=== PATIENT | female | born 1975 | race Hispanic/Latino ===

== ENCOUNTER 2019-08-04 03:39 | Emergency (ER) | payer OTHER ==
[~2019-08-04 03:39] MED LIST: CITA-107 PO; FERS325 PO
[2019-08-04] MEDS ORDERED: FAMOTIDINE 20MG TAB 20 MG TAB ONE (04:18)
[2019-08-04] MEDS ORDERED: ONDANSETRON ODT 4 MG TAB ONE (04:19)
[2019-08-04] MEDS ORDERED: SUCRALFATE 1 GM TABLET ONE (04:19)
[2019-08-04] MEDS ORDERED: MORPHINE SULFATE 4 MG/1ML SYG ONE (04:20)
== END 2019-08-04 05:58 | disposition home or self-care (01) ==
LOC: EDH 03:39
DX: K29.70 Gastritis, unspecified, without bleeding (principal); K02.9 Dental caries, unspecified; Z90.49 Acquired absence of other specified parts of digestive tract
CPT/HCPCS: 96372; 99284; J2270

== ENCOUNTER 2020-01-14 08:00 | Emergency (ER) | payer OTHER ==
[2020-01-14 09:07] LABS: APPEARANCE,URINE Clear (CLEAR); BILIRUBIN,URINE Negative (NEGATIVE); COLOR,URINE Yellow (YELLOW); GLUCOSE, URINE (UA) Negative (NEGATIVE); KETONES,URINE Negative (NEGATIVE); LEUKOCYTE ESTERASE ,URINE Negative (NEGATIVE); NITRATE,URINE Negative (NEGATIVE); OCCULT BLOOD,URINE Negative (NEGATIVE); PH,URINE 6.5 (5.0-8.0); PROTEIN,URINE Negative (NEGATIVE)
[2020-01-14 09:13] LABS: BASOPHILS % (AUTO) 0.5 % (0.0-5.0); EOSINOPHILS % (AUTO) 3.6 % (0.0-8.0); HEMATOCRIT 26.6 % (36-48); LYMPHOCYTES % (AUTO) 16.1 % (21.0-51.0); MEAN CORPUSCULAR HEMOGLOBIN 18.2 pg (27.0-33.0); MEAN CORPUSCULAR HGB CONC 27.1 g/dL (32.0-36.0); MEAN CORPUSCULAR VOLUME 67.2 fL (79-99); MONOCYTES % (AUTO) 5.7 % (3.0-13.0); NEUTROPHILS % (AUTO) 73.9 % (40.0-77.0); PLATELET COUNT (AUTO) 375 K/uL (130-400); RED BLOOD CELL COUNT(AUTO) 3.96 MIL/uL (4.00-5.50); RED CELL DISTRIBUTION WIDTH 20.8 % (11.0-15.5); WHITE BLOOD COUNT (AUTO) 9.1 K/uL (4.8-10.8)
[2020-01-14 09:32] LABS: ALBUMIN 3.6 g/dL (3.5-5.0); BILIRUBIN,TOTAL 0.4 mg/dL (0.2-1.0); CREATININE 0.5 mg/dL (0.5-1.5); POTASSIUM 3.5 mmol/L (3.5-5.1); TOTAL PROTEIN, SERUM 8.3 g/dL (6.0-8.3)
== END 2020-01-14 10:40 | disposition home or self-care (01) ==
LOC: EDH 08:00
DX: R05 Cough (principal); Z90.49 Acquired absence of other specified parts of digestive tract
CPT/HCPCS: 36415; 71045; 80053; 81003; 85025; 93005

== ENCOUNTER 2020-02-11 12:17 | Emergency (ER) | payer OTHER, SELFPAY | END 2020-02-11 14:21 | disposition home or self-care (01) | LOC: EDH 12:17 | DX: J06.9 Acute upper respiratory infection, unspecified (principal); R05 Cough; Z90.49 Acquired absence of other specified parts of digestive tract | CPT/HCPCS: 71045 ==

== ENCOUNTER 2020-04-23 01:43 | Emergency (ER) | payer OTHER, SELFPAY ==
[2020-04-23] MEDS ORDERED: ALBUTEROL SULFATE 0.083% 2.5 MG/3 ML INH IH ONE (03:03)
== END 2020-04-23 03:17 | disposition home or self-care (01) ==
LOC: EDH 01:43
DX: J45.991 Cough variant asthma (principal); Z90.49 Acquired absence of other specified parts of digestive tract
CPT/HCPCS: 71045; 94640

== ENCOUNTER 2021-01-27 13:35 | Emergency (ER) | payer OTHER ==
[~2021-01-27] VITALS: Ht 162.6 cm; Wt 90.7 kg
[2021-01-27 14:38] LABS: BASOPHILS % (AUTO) 0.2 % (0.0-5.0); EOSINOPHILS % (AUTO) 4.1 % (0.0-8.0); HEMATOCRIT 29.8 % (36-48); LYMPHOCYTES % (AUTO) 6.1 % (21.0-51.0); MEAN CORPUSCULAR HEMOGLOBIN 17.7 pg (27.0-33.0); MEAN CORPUSCULAR HGB CONC 25.5 g/dL (32.0-36.0); MEAN CORPUSCULAR VOLUME 69.5 fL (79-99); MONOCYTES % (AUTO) 3.8 % (3.0-13.0); NEUTROPHILS % (AUTO) 85.3 % (40.0-77.0); NUCLEATED RED BLOOD CELLS 0.2 % (0.0-0.19); PLATELET COUNT (AUTO) 319 K/uL (130-400); RED BLOOD CELL COUNT(AUTO) 4.29 MIL/uL (4.00-5.50); RED CELL DISTRIBUTION WIDTH 19.2 % (11.0-15.5); WHITE BLOOD COUNT (AUTO) 9.5 K/uL (4.8-10.8)
[2021-01-27 14:53] LABS: CREATININE 0.6 mg/dL (0.5-1.5); POTASSIUM 3.9 mmol/L (3.5-5.1)
[2021-01-27] MEDS: ONDANSETRON 4MG TABLET PO ONE (14:59)
[2021-01-27 15:03] LABS: ALBUMIN 3.8 g/dL (3.5-5.0); BILIRUBIN,TOTAL 0.8 mg/dL (0.2-1.0); TOTAL PROTEIN, SERUM 8.8 g/dL (6.0-8.3)
[2021-01-27 15:12] VITALS: BP 124/67
[2021-01-27] MEDS ORDERED: ONDA4TAB4 PO (16:10)
[2021-01-27 16:14] VITALS: BP 118/65
== END 2021-01-27 16:16 | disposition home or self-care (01) ==
LOC: EDH 13:35
DX: R11.2 Nausea with vomiting, unspecified (principal); R19.7 Diarrhea, unspecified; Z79.899 Other long term (current) drug therapy; Z20.822 Contact with and (suspected) exposure to COVID-19
CPT/HCPCS: 36415; 80053; 83690; 84702; 85025; 87426; 99283; Q0162 ×2

== ENCOUNTER 2021-06-03 07:49 | Emergency (ER) | payer OTHER ==
[~2021-06-03] VITALS: Ht 162.6 cm; Wt 90.7 kg
[~2021-06-03 07:49] MED LIST changes: +ONDA4TAB4 PO
[2021-06-03 07:51] VITALS: BP 140/68
[2021-06-03] MEDS ORDERED: IBUP-2070 PO (08:54)
== END 2021-06-03 09:08 | disposition home or self-care (01) ==
LOC: EDH 07:49
DX: M77.11 Lateral epicondylitis, right elbow (principal); Z79.899 Other long term (current) drug therapy
CPT/HCPCS: 73090

== ENCOUNTER 2022-04-06 08:15 | Emergency (ER) | payer OTHER ==
[~2022-04-06] VITALS: Ht 160 cm; Wt 85.7 kg
[~2022-04-06 08:15] MED LIST changes: +IBUP-2070 PO
[2022-04-06 08:19] VITALS: BP 129/71
[2022-04-06] MEDS ORDERED: FLUT16H NASAL (10:01)
[2022-04-06] MEDS ORDERED: AMOX500T2 PO (10:01)
== END 2022-04-06 10:12 | disposition home or self-care (01) ==
LOC: EDH 08:15
DX: J32.9 Chronic sinusitis, unspecified (principal); Z20.822 Contact with and (suspected) exposure to COVID-19; D64.9 Anemia, unspecified; Z90.49 Acquired absence of other specified parts of digestive tract; Z79.899 Other long term (current) drug therapy
CPT/HCPCS: 99283; 87635; 87880; 87804 ×2; C9803

== ENCOUNTER 2022-05-11 20:20 | Emergency (ER) | payer OTHER ==
[~2022-05-11] VITALS: Ht 162.6 cm; Wt 74.8 kg
[~2022-05-11 20:20] MED LIST changes: +AMOX500T2 PO; +FLUT16H NASAL
[2022-05-11] MEDS ORDERED: ONDANSETRON 4MG INJ IVP ONE (21:00)
[2022-05-11] MEDS ORDERED: FAMOTIDINE 20MG VIAL IV ONE (21:00)
[2022-05-11] MEDS ORDERED: 0.9%NACL 1000ML 1,000 ML IV ONE (21:00)
[2022-05-11] MEDS ORDERED: MORPHINE 4 MG SYG IVP ONE (21:00)
[2022-05-11 21:32] LABS: BASOPHILS % (AUTO) 0.4 % (0.0-5.0); EOSINOPHILS % (AUTO) 2.7 % (0.0-8.0); HEMATOCRIT 24.8 % (36-48); LYMPHOCYTES % (AUTO) 11.5 % (21.0-51.0); MEAN CORPUSCULAR HEMOGLOBIN 15.8 pg (27.0-33.0); MEAN CORPUSCULAR VOLUME 63.1 fL (79-99); MONOCYTES % (AUTO) 5.7 % (3.0-13.0); NEUTROPHILS % (AUTO) 79.1 % (40.0-77.0); PLATELET COUNT (AUTO) 315 K/uL (130-400); RED BLOOD CELL COUNT(AUTO) 3.93 MIL/uL (4.00-5.50); RED CELL DISTRIBUTION WIDTH 20.2 % (11.0-15.5); WHITE BLOOD COUNT (AUTO) 12.1 K/uL (4.8-10.8)
[2022-05-11 21:47] LABS: CREATININE 0.6 mg/dL (0.5-1.5); POTASSIUM 3.6 mmol/L (3.5-5.1)
[2022-05-11 21:52] LABS: ALBUMIN 3.7 g/dL (3.5-5.0); TOTAL PROTEIN, SERUM 7.9 g/dL (6.0-8.3)
[2022-05-11 21:54] LABS: HCG,QUALITATIVE URINE NEGATIVE (NEGATIVE)
[2022-05-11 22:05] LABS: APPEARANCE,URINE CLOUDY (CLEAR); BILIRUBIN,URINE 0.5 mg/dL (NEGATIVE); COLOR,URINE DARK-BROWN (YELLOW); GLUCOSE, URINE (UA) NEGATIVE (NEGATIVE); KETONES,URINE NEGATIVE (NEGATIVE); LEUKOCYTE ESTERASE ,URINE 500 Leu/uL (NEGATIVE); NITRATE,URINE 1+ (NEGATIVE); OCCULT BLOOD,URINE SMALL (NEGATIVE); PH,URINE 5.5 (5.0-8.0); PROTEIN,URINE 20 mg/dL (NEGATIVE); UROBILINOGEN,URINE 3 mg/dL (0.2-1.0)
[2022-05-11 22:07] LABS: BACTERIA,URINE RARE /HPF (None Seen); MUCUS,URINE RARE LPF (None Seen); SQUAMOUS EPITHELIAL CELL,UR MOD /HPF (0-2); TRANSITIONAL EPI CELLS,URINE RARE /HPF (None Seen); WBC,URINE TNTC /HPF (0-1)
[2022-05-11] MEDS ORDERED: IOHEXOL 350 MG/ML 100ML INFUS..BTL IV ONE (22:17)
[2022-05-11] MEDS ORDERED: PANT40TA PO (23:56)
[2022-05-12] MEDS ORDERED: ONDANSETRON 4MG INJ IVP ONE (01:00)
[2022-05-12 03:43] VITALS: BP 101/50
== END 2022-05-12 03:52 | disposition home or self-care (01) ==
LOC: EDH 20:20
DX: K29.70 Gastritis, unspecified, without bleeding (principal); D50.9 Iron deficiency anemia, unspecified; Z20.822 Contact with and (suspected) exposure to COVID-19; Z90.49 Acquired absence of other specified parts of digestive tract; Z79.899 Other long term (current) drug therapy
CPT/HCPCS: 99285; 36430; 96374; 96375; 87635; 96361; 84484; 80053; 83690; 85025; 86850; 86900; 86901; 86923; 87088; 87804 ×2; 81001; 81025; 36415; 93005; 96376; P9016; C9803; J3490; J7030; J2405 ×2; J2270; Q9967

== ENCOUNTER 2022-09-16 05:35 | Emergency (ER) | payer OTHER ==
[~2022-09-16] VITALS: Ht 162.6 cm; Wt 55.3 kg
[~2022-09-16 05:35] MED LIST changes: +PANT40TA PO
[2022-09-16 05:37] VITALS: BP 122/76
[2022-09-16] MEDS ORDERED: GUAIFENESIN-DM 200/20 MG 10 ML PO ONE (06:30)
[2022-09-16] MEDS ORDERED: IBUPROFEN 600 MG TABLET PO ONE (06:30)
[2022-09-16] MEDS ORDERED: IBUP-2070 PO (06:59)
[2022-09-16] MEDS ORDERED: AZIT500T4 PO (06:59)
[2022-09-16] MEDS ORDERED: D-ME118S47 PO (06:59)
== END 2022-09-16 07:03 | disposition home or self-care (01) ==
LOC: EDH 05:35
DX: J40 Bronchitis, not specified as acute or chronic (principal); Z90.49 Acquired absence of other specified parts of digestive tract; Z79.1 Long term (current) use of non-steroidal anti-inflammatories (NSAID); Z79.899 Other long term (current) drug therapy; Z20.822 Contact with and (suspected) exposure to COVID-19
CPT/HCPCS: 99283; 87635; 87880; 87804 ×2; C9803

== ENCOUNTER 2023-01-12 08:56 | Emergency (ER) | payer OTHER ==
[~2023-01-12] VITALS: Ht 157.5 cm; Wt 81.6 kg
[~2023-01-12 08:56] MED LIST changes: +AZIT500T4 PO; +D-ME118S47 PO
[2023-01-12 09:53] LABS: BASOPHILS % (AUTO) 0.5 % (0.0-5.0); EOSINOPHILS % (AUTO) 6.8 % (0.0-8.0); HEMATOCRIT 27.7 % (36-48); LYMPHOCYTES % (AUTO) 28.4 % (21.0-51.0); MEAN CORPUSCULAR HGB CONC 26.4 g/dL (32.0-36.0); MEAN CORPUSCULAR VOLUME 68.2 fL (79-99); MONOCYTES % (AUTO) 11.2 % (3.0-13.0); NEUTROPHILS % (AUTO) 52.8 % (40.0-77.0); PLATELET COUNT (AUTO) 295 K/uL (130-400); RED BLOOD CELL COUNT(AUTO) 4.06 MIL/uL (4.00-5.50); RED CELL DISTRIBUTION WIDTH 19.9 % (11.0-15.5); WHITE BLOOD COUNT (AUTO) 6.4 K/uL (4.8-10.8)
[2023-01-12 10:00] LABS: CREATININE 0.6 mg/dL (0.5-1.5); POTASSIUM 3.8 mmol/L (3.5-5.1)
[2023-01-12 11:26] LABS: % IRON SATURATION 2.1 % (22-44)
[2023-01-12] MEDS ORDERED: IBUPROFEN 600 MG TABLET PO ONE (11:30)
[2023-01-12 14:02] VITALS: BP 139/77; PULSE 81; RESP 20; O2SAT 100
== END 2023-01-12 14:38 | disposition home or self-care (01) ==
LOC: EDH 08:56
DX: M25.512 Pain in left shoulder (principal); D50.9 Iron deficiency anemia, unspecified; Z79.899 Other long term (current) drug therapy; Z90.49 Acquired absence of other specified parts of digestive tract
CPT/HCPCS: 36415; 71045; 80048; 81025; 82728; 83540; 83550; 84484; 85025; 93005

== ENCOUNTER 2023-05-18 01:15 | Emergency (ER) | payer BC, OTHER ==
[~2023-05-18] VITALS: Ht 162.6 cm; Wt 84.8 kg
[~2023-05-18 01:15] MED LIST changes: +BROM118S48 PO; -D-ME118S47 PO
[2023-05-18 02:12] LABS: SARS-CoV-2, RNA, NAAT POSITIVE SARS CoV-2 (NEGATIVE)
[2023-05-18 02:13] LABS: RAPID GROUP A STREP negative (NEGATIVE)
[2023-05-18 02:22] LABS: INFLUENZA TYPE A Negative For Type A (NEGATIVE); INFLUENZA TYPE B Negative For Type B (NEGATIVE)
[2023-05-18] MEDS ORDERED: IBUP-1493 PO (02:41)
[2023-05-18] MEDS ORDERED: PRED20TA3 PO (02:41)
[2023-05-18] MEDS ORDERED: PREDNISONE 20 MG TABLET PO ONE (03:00)
[2023-05-18] MEDS ORDERED: IBUPROFEN 800 MG TAB PO ONE (03:00)
[2023-05-18 03:34] VITALS: BP 132/74; PULSE 78; RESP 18; O2SAT 99
== END 2023-05-18 03:44 | disposition home or self-care (01) ==
LOC: EDH 01:15
DX: U07.1 COVID-19 (principal); J45.909 Unspecified asthma, uncomplicated; Z79.899 Other long term (current) drug therapy; Z90.49 Acquired absence of other specified parts of digestive tract
CPT/HCPCS: 99283; 87635; 87880; 87804 ×2; C9803

== ENCOUNTER 2023-12-02 03:34 | Emergency (ER) | payer BC, OTHER ==
[~2023-12-02] VITALS: Ht 162.6 cm; Wt 82.6 kg
[~2023-12-02 03:34] MED LIST changes: -AMOX500T2 PO; -AZIT500T4 PO; -BROM118S48 PO; -FERS325 PO; -FLUT16H NASAL; +IBUP-1493 PO; -IBUP-2070 PO; -ONDA4TAB4 PO; +PRED20TA3 PO
[2023-12-02 03:59] LABS: BASOPHILS # (AUTO) 0.04 K/uL (0.00-0.20); BASOPHILS % (AUTO) 0.4 % (0.0-5.0); EOSINOPHILS # (AUTO) 0.23 K/uL (0.00-0.70); EOSINOPHILS % (AUTO) 2.5 % (0.0-8.0); HEMATOCRIT 26.8 % (36-48); IMMATURE GRANULOCYTE ABSOLUTE 0.05 K/uL (0-1); LYMPHOCYTES % (AUTO) 11.1 % (21.0-51.0); MEAN CORPUSCULAR HEMOGLOBIN 18.2 pg (27.0-33.0); MEAN CORPUSCULAR HGB CONC 27.6 g/dL (32.0-36.0); MEAN CORPUSCULAR VOLUME 65.8 fL (79-99); MONOCYTES # (AUTO) 0.7 K/uL (0.1-1.0); MONOCYTES % (AUTO) 7.4 % (3.0-13.0); NEUTROPHILS # (AUTO) 7.2 K/uL (1.8-7.7); NEUTROPHILS % (AUTO) 78.1 % (40.0-77.0); PLATELET COUNT (AUTO) 305 K/uL (130-400); RED BLOOD CELL COUNT(AUTO) 4.07 MIL/uL (4.00-5.50); RED CELL DISTRIBUTION WIDTH 20.5 % (11.0-15.5); WHITE BLOOD COUNT (AUTO) 9.3 K/uL (4.8-10.8)
[2023-12-02 04:14] LABS: CREATININE 0.6 mg/dL (0.5-1.0); POTASSIUM 3.9 mmol/L (3.5-5.1)
[2023-12-02] MEDS: FAMOTIDINE 20MG VIAL IV ONE (04:14)
[2023-12-02] MEDS: ONDANSETRON 4MG INJ IVP ONE (04:14)
[2023-12-02] MEDS: 0.9%NACL 1000ML 1,000 ML IV ONE (04:14)
[2023-12-02 04:21] LABS: ALBUMIN 3.4 g/dL (3.5-5.0); BILIRUBIN,TOTAL 0.3 mg/dL (0.2-1.0); TOTAL PROTEIN, SERUM 7.6 g/dL (6.0-8.3)
[2023-12-02 04:25] LABS: APPEARANCE,URINE CLEAR (CLEAR); BILIRUBIN,URINE NEGATIVE (NEGATIVE); COLOR,URINE YELLOW (YELLOW); GLUCOSE, URINE (UA) NEGATIVE (NEGATIVE); KETONES,URINE NEGATIVE (NEGATIVE); LEUKOCYTE ESTERASE ,URINE NEGATIVE Leu/uL (NEGATIVE); NITRATE,URINE NEGATIVE (NEGATIVE); OCCULT BLOOD,URINE SMALL (NEGATIVE); PROTEIN,URINE 10 mg/dL (NEGATIVE); UROBILINOGEN,URINE 0.2 mg/dL (0.2-1.0)
[2023-12-02 04:26] LABS: ADD UA MICROSCOPIC YES
[2023-12-02 04:28] LABS: BACTERIA,URINE FEW /HPF (None Seen); MUCUS,URINE FEW LPF (None Seen); SQUAMOUS EPITHELIAL CELL,UR RARE /HPF (0-2)
[2023-12-02] MEDS: PANTOPRAZOLE 40 MG/VIAL IVP ONE (05:42)
[2023-12-02] MEDS: MORPHINE 4 MG SYG IVP ONE (07:43)
[2023-12-02 08:10] VITALS: BP 127/66; PULSE 84; RESP 16; O2SAT 100
[2023-12-02] MEDS ORDERED: OMEP-420 PO (09:40)
[2023-12-02] MEDS ORDERED: ONDA-243 PO (09:42)
== END 2023-12-02 10:10 | disposition home or self-care (01) ==
LOC: EDH 03:34
DX: R10.13 Epigastric pain (principal); E86.0 Dehydration; D50.9 Iron deficiency anemia, unspecified; J45.909 Unspecified asthma, uncomplicated; Z90.49 Acquired absence of other specified parts of digestive tract; Z79.899 Other long term (current) drug therapy; Z98.890 Other specified postprocedural states
CPT/HCPCS: 99285; 74176; 96374; 96375; 96361; 84484; 80053; 83690; 85025; 86850; 86900; 86901; 81001; 81025; 36415; 93005; J3490; J7030; J2405; J2270; C9113

== ENCOUNTER 2024-04-05 01:48 | Emergency (ER) | payer OTHER ==
[~2024-04-05] VITALS: Ht 162.6 cm; Wt 85.7 kg
[~2024-04-05 01:48] MED LIST changes: +OMEP-420 PO; +ONDA-243 PO
[2024-04-05 02:13] LABS: BASOPHILS # (AUTO) 0.06 K/uL (0.00-0.20); BASOPHILS % (AUTO) 0.5 % (0.0-5.0); EOSINOPHILS # (AUTO) 0.54 K/uL (0.00-0.70); EOSINOPHILS % (AUTO) 4.7 % (0.0-8.0); HEMATOCRIT 29.7 % (36-48); IMMATURE GRANULOCYTE ABSOLUTE 0.02 K/uL (0-1); LYMPHOCYTES # (AUTO) 3.3 K/uL (1.0-4.8); LYMPHOCYTES % (AUTO) 28.7 % (21.0-51.0); MEAN CORPUSCULAR HEMOGLOBIN 18.8 pg (27.0-33.0); MEAN CORPUSCULAR HGB CONC 27.3 g/dL (32.0-36.0); MEAN CORPUSCULAR VOLUME 68.8 fL (79-99); MONOCYTES # (AUTO) 0.8 K/uL (0.1-1.0); MONOCYTES % (AUTO) 6.5 % (3.0-13.0); NEUTROPHILS # (AUTO) 6.8 K/uL (1.8-7.7); NEUTROPHILS % (AUTO) 59.4 % (40.0-77.0); PLATELET COUNT (AUTO) 367 K/uL (130-400); RED BLOOD CELL COUNT(AUTO) 4.32 MIL/uL (4.00-5.50); RED CELL DISTRIBUTION WIDTH 19.5 % (11.0-15.5); WHITE BLOOD COUNT (AUTO) 11.5 K/uL (4.8-10.8)
[2024-04-05 02:24] LABS: CREATININE 0.7 mg/dL (0.5-1.0); POTASSIUM 3.2 mmol/L (3.5-5.1)
[2024-04-05 03:11] LABS: APPEARANCE,URINE CLEAR (CLEAR); BILIRUBIN,URINE NEGATIVE (NEGATIVE); COLOR,URINE YELLOW (YELLOW); GLUCOSE, URINE (UA) NEGATIVE (NEGATIVE); KETONES,URINE NEGATIVE (NEGATIVE); LEUKOCYTE ESTERASE ,URINE 75 Leu/uL (NEGATIVE); NITRATE,URINE NEGATIVE (NEGATIVE); PROTEIN,URINE 10 mg/dL (NEGATIVE); UROBILINOGEN,URINE 0.2 mg/dL (0.2-1.0)
[2024-04-05 03:15] LABS: ADD UA MICROSCOPIC YES
[2024-04-05 03:19] LABS: BACTERIA,URINE FEW /HPF (None Seen); MUCUS,URINE FEW LPF (None Seen); RBC,URINE 0-1 /HPF (0-1); SQUAMOUS EPITHELIAL CELL,UR FEW /HPF (0-2)
[2024-04-05] MEDS ORDERED: OMEP40CA21 PO (04:03)
[2024-04-05 04:34] VITALS: BP 134/72; PULSE 92; RESP 18; TEMP 98.4; O2SAT 96
[2024-04-05] MEDS: ondanSETRON 4MG INJ IVP ONE (04:45)
[2024-04-05] MEDS: morPHINE 2 MG SYG IVP ONE (04:45)
[2024-04-05] MEDS: FAMOTIDINE 20MG TAB PO ONE (04:46)
[2024-04-05] MEDS: 0.9%NACL 1000ML 1,000 ML IV ONE (04:46)
[2024-04-05] MEDS: traMADol HCL 50 MG TABLET PO ONE (05:10)
== END 2024-04-05 05:30 | disposition home or self-care (01) ==
LOC: EDH 01:48
DX: K29.70 Gastritis, unspecified, without bleeding (principal); N92.0 Excessive and frequent menstruation with regular cycle; D50.9 Iron deficiency anemia, unspecified; R11.2 Nausea with vomiting, unspecified; K21.9 Gastro-esophageal reflux disease without esophagitis; Z79.899 Other long term (current) drug therapy
CPT/HCPCS: 99284; 96374; 96361; 80048; 83690; 85025; 87086; 81001; 81025; 36415; J7030; J2405; J2270

== ENCOUNTER 2024-07-26 15:44 | Emergency (ER) | payer OTHER ==
[~2024-07-26] VITALS: Ht 162.6 cm; Wt 84.8 kg
[~2024-07-26 15:44] MED LIST changes: +OMEP40CA21 PO
--- NOTE | 2024-07-26 17:30 | HMCIMG ---
CT ABDOMEN WITHOUT CONTRAST. CT PELVIS WITHOUT CONTRAST. INDICATION: Right flank pain TECHNIQUE: Routine transaxial imaging using 5 mm slice thickness through the abdomen and pelvis without the administration of IV contrast. Thin slice reconstructions are also provided. Coronal and sagittal reformatted images acquired for interpretation. CT was performed with one or more of the following dose reduction techniques: Automated exposure control, adjustment of the mA and/or kV according to patient size, or use of iterative reconstruction technique. COMPARISON: None FINDINGS: ON NONCONTRAST IMAGING: ABDOMEN: Heart size is normal. Visible lung bases are clear. No abnormal renal calcifications, hydronephrosis, perinephric inflammation, or proximal hydroureter detected. The liver is normal in size and smooth in contour without biliary duct dilation. The spleen is normal in size and attenuation. The gallbladder is absent. The pancreas appears normal without pancreatic duct dilation. The adrenal glands appear normal. No significant abdominal, retrocrural or retroperitoneal adenopathy noted. No evidence for intra-abdominal free air or organized fluid collection. No aortic aneurysmal dilation identified. PELVIS: Urinary bladder is empty. No evidence for free air or organized pelvic fluid collection. No significant pelvic adenopathy detected. Visualized small and large bowel loops appear unremarkable. Terminal ileum appears unremarkable. The appendix appears normal. 4.8 cm right ovarian cyst. Visible osseous structures are intact. IMPRESSION: 4.8 cm right ovarian cyst for which pelvic ultrasound is recommended. No evidence for urolithiasis.
[2024-07-26 17:37] VITALS: BP 138/85; PULSE 89; RESP 18; TEMP 98; O2SAT 100
[2024-07-26 17:53] LABS: BASOPHILS # (AUTO) 0.03 K/uL (0.00-0.20); BASOPHILS % (AUTO) 0.4 % (0.0-5.0); EOSINOPHILS # (AUTO) 0.12 K/uL (0.00-0.70); EOSINOPHILS % (AUTO) 1.4 % (0.0-8.0); HEMATOCRIT 28.9 % (36-48); IMMATURE GRANULOCYTE ABSOLUTE 0.02 K/uL (0-1); LYMPHOCYTES # (AUTO) 1.5 K/uL (1.0-4.8); LYMPHOCYTES % (AUTO) 17.6 % (21.0-51.0); MEAN CORPUSCULAR HEMOGLOBIN 19.2 pg (27.0-33.0); MEAN CORPUSCULAR HGB CONC 27.7 g/dL (32.0-36.0); MEAN CORPUSCULAR VOLUME 69.3 fL (79-99); MONOCYTES # (AUTO) 0.6 K/uL (0.1-1.0); MONOCYTES % (AUTO) 7.6 % (3.0-13.0); NEUTROPHILS % (AUTO) 72.8 % (40.0-77.0); PLATELET COUNT (AUTO) 289 K/uL (130-400); RED BLOOD CELL COUNT(AUTO) 4.17 MIL/uL (4.00-5.50); RED CELL DISTRIBUTION WIDTH 19.3 % (11.0-15.5); WHITE BLOOD COUNT (AUTO) 8.3 K/uL (4.8-10.8)
[2024-07-26 18:00] LABS: CREATININE 0.6 mg/dL (0.5-1.0); POTASSIUM 3.3 mmol/L (3.5-5.1)
[2024-07-26 18:07] LABS: ALBUMIN 3.5 g/dL (3.5-5.0); BILIRUBIN,DIRECT 0.1 mg/dL (0.0-0.3); BILIRUBIN,TOTAL 0.4 mg/dL (0.2-1.0); TOTAL PROTEIN, SERUM 7.4 g/dL (6.0-8.3)
--- NOTE | 2024-07-26 18:24 | ERN ---
General Chief Complaint: Abdominal Pain Stated Complaint: STOMACH PAIN Time Seen by MD: 15:45 Time Seen by Midlevel: 15:45 Source: patient History of Present Illness Initial Comments Patient is a 40-year-old female with a past medical history of ureter stones presenting to the emergency department with midepigastric abdominal pain that radiates to the back. Patient reports having a similar episode last year where she was found to have a kidney stone. Denies any nausea, vomiting, fever, chills, diarrhea, or any other symptoms at this time. She does report having history of chronic anemia on reports taking iron supplementation for this. Allergies: Coded Allergies: No Known Drug Allergies (Verified Allergy, Unknown, 06/04/16) Home Meds Active Scripts Omeprazole (Omeprazole) 40 Mg Capsule., 1 CAP PO DAILY for 30 Days, #30 CAP 0 Refills Prov:SHASHANK WILSON MD 04/05/24 Ondansetron (Ondansetron Odt) 4 Mg Tab.rapdis, 4 MG PO TIDP PRN for NAUSEA, #30 TAB 0 Refills Prov:YOLANDA TORRES MD 12/02/23 Omeprazole (Omeprazole) 20 Mg Tab.rap.dr, 20 MG PO DAILY for 14 Days, #15 0 Refills Prov:YOLANDA TORRES MD 12/02/23 Prednisone (Prednisone) 20 Mg Tablet, 1 TAB PO AD for 6 Days, #14 TAB 0 Refills TAKE 3 TAB BY MOUTH daily X3 DAYS, THEN TAKE 2 TAB BY MOUTH daily X2 DAYS, THEN TAKE 1 TAB BY MOUTH ONCE A DAY X1 DAY. Prov:ZEN SCHWARZ MD 05/18/23 Ibuprofen (Motrin/Advil) 800 Mg Tab, 800 MG PO TID, #30 TAB Prov:ZEN SCHWARZ MD 05/18/23 Pantoprazole Sodium (Protonix) 40 Mg Tablet., 40 MG PO DAILY, #30 TAB Prov:DES COSME 05/11/22 Reported Medications Citalopram Hydrobromide (Citalopram HBr) 20 Mg Tablet, 20 MG PO DAILY, TAB 02/02/18 Past Medical History Past Medical History: Anemia, Asthma Past Surgical History: Cholecystectomy Family History Family History: Negative Social History Social History: Negative, Lives with family Female( History) History: Not Applicable ROS Dictation CONSTITUTIONAL: Negative except for HPI HEAD/FACE: Negative except for HPI EENT: Negative except for HPI RESPIRATORY: Negative except for HPI GASTROINTESTINAL/ABDOMINAL: Negative except for HPI GENITOURINARY: Negative except for HPI MUSCULOSKELETAL: Negative except for HPI INTEGUMENTARY: Negative except for HPI NEUROLOGICAL/PSYCH: Negative except for HPI HEMATOLOGIC/LYMPHATIC: Negative except for HPI All Systems Negative, Except as noted above. 13 point review of systems assessed and all negative except for above. Physical Exam Physical Exam Dictation Vital Signs reviewed General Appearance: Alert, oriented x 3, no acute distress, well developed, nourished. Head and Face: non-traumatic. Eyes: PERRL, pink conjunctivas, eyelid no trauma, anterior chamber with arcus senilis. Ears: Pinnas intact and no signs of trauma or erythema ear canals clear and no discharge TM no erythema Nose: No discharge, no bleeding. Oropharynx: Mouth normal, tongue pink, pharynx clear,no erythema, tonsils no exudates, no abscesses noted, mucous membrane moist Neck: Supple, non-tender, no thyromegaly, no masses, no JVD, no bruits Breast:Deferred Chest:No tenderness, no crepitus, no paradoxical movement, no retractions Lungs:Clear, well-ventilated, symmetric, no rales, no wheezing, no rhonchi, no stridor, good breath sounds bilaterally Heart: Regular rate, regular rhythm, no murmur, no gallops Vascular: no peripheral edema, Abdomen: Soft, positive bowel sounds, nondistended, no guarding, nontender, no rebound, no masses no hepatomegaly, no splenomegaly, no Boyd's sign, no hernias. Rectal: Deferred Genital: Deferred Neurological: Normal speech, motor function intact, sensory function intact Musculoskeletal: Neck nontender, full range of motion, back nontender, full range of motion, Extremities: nontender, full range of motion Skin: Color pink, dry, no turgor, no rash, no lacerations, no abrasions, no contusions. Lymphatic: Deferred Results Laboratory and Microbiology Lab and Micro Result Laboratory Tests Test 07/26/24 17:45 White Blood Count 8.3 K/uL (4.8-10.8) Red Blood Count 4.17 MIL/uL (4.00-5.50) Hemoglobin 8.0 g/dL (12.0-16.0) L Hematocrit 28.9 % (36-48) L Mean Corpuscular Volume 69.3 fL (79-99) L Mean Corpuscular Hemoglobin 19.2 pg (27.0-33.0) L Mean Corpuscular Hemoglobin Concent 27.7 g/dL (32.0-36.0) L Red Cell Distribution Width 19.3 % (11.0-15.5) H Platelet Count 289 K/uL (130-400) Mean Platelet Volume 10.0 fL (7.5-10.5) Immature Granulocyte % (Auto) 0.2 % (0-1) Neutrophils (%) (Auto) 72.8 % (40.0-77.0) Lymphocytes (%) (Auto) 17.6 % (21.0-51.0) L Monocytes (%) (Auto) 7.6 % (3.0-13.0) Eosinophils (%) (Auto) 1.4 % (0.0-8.0) Basophils (%) (Auto) 0.4 % (0.0-5.0) Neutrophils # (Auto) 6.0 K/uL (1.8-7.7) Lymphocytes # (Auto) 1.5 K/uL (1.0-4.8) Monocytes # (Auto) 0.6 K/uL (0.1-1.0) Eosinophils # (Auto) 0.12 K/uL (0.00-0.70) Basophils # (Auto) 0.03 K/uL (0.00-0.20) Absolute Immature Granulocyte (auto 0.02 K/uL (0-1) Nucleated Red Blood Cells 0.0 % (0.0-0.19) Red Blood Cell Morphology See comments Sodium Level 139 mmol/L (136-145) Potassium Level 3.3 mmol/L (3.5-5.1) L Chloride Level 103 mmol/L (101-111) Carbon Dioxide Level 28 mmol/L (21-32) Blood Urea Nitrogen 4 mg/dL (7-18) L Creatinine 0.6 mg/dL (0.5-1.0) Glomerular Filtration Rate Calc 111 mL/min (>90) Random Glucose 87 mg/dL (70-105) Total Calcium 8.2 mg/dL (8.5-10.1) L Total Bilirubin 0.4 mg/dL (0.2-1.0) Direct Bilirubin 0.1 mg/dL (0.0-0.3) Aspartate Amino Transf (AST/SGOT) 16 U/L (10-37) Alanine Aminotransferase (ALT/SGPT) 17 U/L (12-78) Alkaline Phosphatase 68 U/L (50-136) Total Protein 7.4 g/dL (6.0-8.3) Albumin 3.5 g/dL (3.5-5.0) Lipase 32 U/L (16-77) Labs Reviewed?: Yes MDM MDM: Differential diagnosis: Electrolyte abnormality, dehydration, pancreatitis, small-bowel obstruction, ureter stone, pyelonephritis There are no social concerns with this patient. Prescription drug management Prescriptions will include: None Medical management and examination interpretation discussions were had by me with other qualified healthcare professionals as indicated for the patient's care. ED Course Orders Procedure Category Date Status Time Cbc With Differential LAB 07/26/24 Complete 16:32 Basic Metabolic Panel LAB 07/26/24 Complete 16:32 Hepatic Function Panel LAB 07/26/24 Complete 16:32 Lipase LAB 07/26/24 Complete 16:32 Ct Abdomen/Pelvis W/O CT 07/26/24 Resulted Contrast 16:32 Vital Signs Date Time Temp Pulse Resp B/P (MAP) Pulse Ox O2 Delivery O2 Flow Rate FiO2 07/26/24 17:37 98.1 89 18 138/85 100 Room Air* 0 21 07/26/24 16:42 98.1 89 18 138/85 100 Room Air 0 [place] [address] [address] IMAGING REPORT Signed PATIENT: CARRIE HUDDLESTON MR#: [id number] : 1975 SEX: F AGE: 48 LOCATION: [facility] ORDER 1633 STATUS: REG ER REPORT#: [id number] SERVICE 163 REASON: r/o ureter stone ORDERING PHYSICIAN: ELISSA COELHO PROCEDURE: ABD PEL WO - CT ABDOMEN/PELVIS W/O CONTRAST CT ABDOMEN WITHOUT CONTRAST. CT PELVIS WITHOUT CONTRAST. INDICATION: Right flank pain TECHNIQUE: Routine transaxial imaging using 5 mm slice thickness through the abdomen and pelvis without the administration of IV contrast. Thin slice reconstructions are also provided. Coronal and sagittal reformatted images acquired for interpretation. CT was performed with one or more of the following dose reduction techniques: Automated exposure control, adjustment of the mA and/or kV according to patient size, or use of iterative reconstruction technique. COMPARISON: None FINDINGS: ON NONCONTRAST IMAGING: ABDOMEN: Heart size is normal. Visible lung bases are clear. No abnormal renal calcifications, hydronephrosis, perinephric inflammation, or proximal hydroureter detected. The liver is normal in size and smooth in contour without biliary duct dilation. The spleen is normal in size and attenuation. The gallbladder is absent. The pancreas appears normal without pancreatic duct dilation. The adrenal glands appear normal. No significant abdominal, retrocrural or retroperitoneal adenopathy noted. No evidence for intra-abdominal free air or organized fluid collection. No aortic aneurysmal dilation identified. PELVIS: Urinary bladder is empty. No evidence for free air or organized pelvic fluid collection. No significant pelvic adenopathy detected. Visualized small and large bowel loops appear unremarkable. Terminal ileum appears unremarkable. The appendix appears normal. 4.8 cm right ovarian cyst. Visible osseous structures are intact. IMPRESSION: 4.8 cm right ovarian cyst for which pelvic ultrasound is recommended. No evidence for urolithiasis. DICTATED BY: TAN HOWARD MD DATE: 07/26/241725 ELECTRONICALLY SIGNED BY: TAN HOWARD MD DATE: 07/26/24 173 DX & DISP Disposition: Discharge Departure Impression: Primary Impression: Epigastric pain Additional Impressions: Gastritis, Chronic anemia Condition: Stable Additional Instructions: Your blood work today is unremarkable. There was no evidence of pancreatitis. Liver function tests are normal. Your CT scan of the abdomen/pelvis does not reveal any evidence of a kidney stone, kidney infection, or small-bowel obstruction. You will need to follow up with your primary care doctor for further evaluation. Referrals: MARIPOSA FERNÁNDEZ DO (PCP) I have reviewed the case, and I agree with, Diagnosis and Plan I performed the substantive portion of the visit. I have reviewed and personally made and approve the management plan that is documented in the note by myself or the [facility]. I acknowledge for responsibility for the patient's management plan. ELISSA COELHO Jul 26, 2024 18:24
== END 2024-07-26 18:36 | disposition home or self-care (01) ==
LOC: EDH 15:44
DX: K29.70 Gastritis, unspecified, without bleeding (principal); D64.9 Anemia, unspecified; J45.909 Unspecified asthma, uncomplicated; Z79.1 Long term (current) use of non-steroidal anti-inflammatories (NSAID); Z79.899 Other long term (current) drug therapy; Z90.49 Acquired absence of other specified parts of digestive tract
CPT/HCPCS: 36415; 74176; 80048; 80076; 83690; 85025; 99284

== ENCOUNTER 2024-08-10 06:08 | Emergency (ER) | payer OTHER ==
[~2024-08-10] VITALS: Ht 162.6 cm; Wt 84.4 kg
[2024-08-10 06:42] LABS: RAPID GROUP A STREP negative (NEGATIVE)
[2024-08-10] MEDS: ALBUTEROL 0.083% 2.5 MG/3 ML INH IH ONE (06:45)
[2024-08-10] MEDS: IpraTROPium 0.5 MG/2.5 ML INH IH ONE (06:45)
[2024-08-10 06:46] VITALS: PULSE 83; RESP 20
[2024-08-10 06:47] LABS: SARS-CoV-2, RNA, NAAT NEGATIVE SARS CoV-2 (NEGATIVE)
[2024-08-10 06:52] LABS: INFLUENZA TYPE A Negative For Type A (NEGATIVE); INFLUENZA TYPE B Negative For Type B (NEGATIVE)
--- NOTE | 2024-08-10 07:04 | NUR ---
REPORT TAKEN FROM
--- NOTE | 2024-08-10 08:39 | ERN ---
General Chief Complaint: Flu Symptoms Stated Complaint: COUGH, SORE THROAT ONSET YESTERDAY Time Seen by MD: 08:18 Source: patient History of Present Illness Initial Comments Patient was is a 49-year-old female coming in to be evaluated for sore throat and URI. Per patient she has been having a cough sore throat for a couple of days. Patient also states he was she was exposed to CC all in his by a co- worker. Allergies: Coded Allergies: No Known Drug Allergies (Verified Allergy, Unknown, 06/04/16) Home Meds Active Scripts Omeprazole (Omeprazole) 40 Mg Capsule., 1 CAP PO DAILY for 30 Days, #30 CAP 0 Refills Prov:SHASHANK WILSON MD 04/05/24 Ondansetron (Ondansetron Odt) 4 Mg Tab.rapdis, 4 MG PO TIDP PRN for NAUSEA, #30 TAB 0 Refills Prov:YOLANDA TORRES MD 12/02/23 Omeprazole (Omeprazole) 20 Mg Tab.rap., 20 MG PO DAILY for 14 Days, #15 0 Refills Prov:YOLANDA TORRES MD 12/02/23 Prednisone (Prednisone) 20 Mg Tablet, 1 TAB PO AD for 6 Days, #14 TAB 0 Refills TAKE 3 TAB BY MOUTH daily X3 DAYS, THEN TAKE 2 TAB BY MOUTH daily X2 DAYS, THEN TAKE 1 TAB BY MOUTH ONCE A DAY X1 DAY. Prov:ZEN SCHWARZ MD 05/18/23 Ibuprofen (Motrin/Advil) 800 Mg Tab, 800 MG PO TID, #30 TAB Prov:ZEN SCHWARZ MD 05/18/23 Pantoprazole Sodium (Protonix) 40 Mg Tablet., 40 MG PO DAILY, #30 TAB Prov:DES COSME 05/11/22 Reported Medications Citalopram Hydrobromide (Citalopram HBr) 20 Mg Tablet, 20 MG PO DAILY, TAB 02/02/18 Past Medical History Past Medical History: Anxiety, COPD Past Surgical History: Cholecystectomy Family History Family History: Negative Social History Social History: Negative, Lives with family Female( History) History: Not Applicable LMP: Aug 04, 2024 ROS Dictation CONSTITUTIONAL: No chills, no fever, no weakness, no diaphoresis, no malaise. HEAD/FACE: No signs of trauma. EENT: No eye pain, no blurred vision, no tearing, no double vision, no ear pain, no ear discharge, no nose pain, no nasal congestion, no throat pain, no throat swelling, no mouth pain. RESPIRATORY: No cough, no orthopnea, no SOB, no stridor, no wheezing. CARDIOVASCULAR: No chest pain, no edema, no palpitations, no syncope. GASTROINTESTINAL/ABDOMINAL: No abdominal pain, no constipation, no diarrhea, no nausea, no vomiting. GENITOURINARY: No abnormal discharge, no dysuria, no frequent urination, no hematuria. No complaints of pain in the genitals. MUSCULOSKELETAL: No back pain, no gout, no joint pain, no joint swelling, no muscle pain, no muscle stiffness, no neck pain. INTEGUMENTARY: No change in color, no change in hair/nails, no dryness, no lesion, no lumps, no rash. NEUROLOGICAL/PSYCH: No anxiety, not depressed, no emotional problem, no headache, no numbness, no pre-existing deficit, no history of seizures, no tremors, no weakness. HEMATOLOGIC/LYMPHATIC: Not anemic, no history of blood clots, no apparent bleeding, no bruising, glands not swollen. All Systems Negative, Except as Noted. Physical Exam Physical Exam Dictation VITAL SIGNS: Reviewed. GENERAL APPEARANCE: Alert, oriented x3, no acute distress, obese. HEAD AND FACE: Non-traumatic. EYES: PERRL, pink conjunctivas, eyelid no trauma, anterior chamber clear. EARS: Pinnas intact and no signs of trauma or erythema. Ear canals clear and no discharge. TMs no erythema. NOSE: No discharge, no bleeding. OROPHARYNX: Mouth normal, teeth no caries, tongue pink. Pharynx erythema. Tonsils no exudates, no abscesses noted. Mucous membrane moist. NECK: Supple, non-tender, no thyromegaly, no masses, no JVD, no bruits. BREAST: Deferred. CHEST: No tenderness, no crepitus, no paradoxical movement, no retractions. LUNGS: Clear, well-ventilated, symmetric, no rales, no wheezing, no rhonchi, no stridor, good breath sounds bilaterally. HEART: Regular rate, regular rhythm, no murmur, no gallops. VASCULAR: No peripheral edema. ABDOMEN: Soft, positive bowel sounds, nondistended, no guarding, nontender, no rebound, no masses no hepatomegaly, no splenomegaly, no Boyd's sign, no hernias. RECTAL: Deferred. GENITAL: Deferred. NEUROLOGICAL: Normal speech, gross motor function intact, gross sensory function intact. MUSCULOSKELETAL: Neck nontender, full range of motion, back nontender, full range of motion. EXTREMITIES: Nontender, full range of motion. SKIN: Color pink, dry, no turgor, no rash, no lacerations, no abrasions, no contusions. LYMPHATICS: Deferred. Results Laboratory and Microbiology Lab and Micro Result Laboratory Tests Test 08/10/24 06:19 Influenza Type A Antigen Negative For Type A Influenza Type B Antigen Negative For Type B SARS-CoV-2, RNA, NAAT NEGATIVE SARS CoV-2 Group A Streptococcus Rapid negative (NEGATIVE) Labs Reviewed?: Yes EKG/XRAY/US/CT/MRI X-RAY Comment Chest [id number] [place], [place] [id number] IMAGING REPORT Signed PATIENT: CARRIE HUDDLESTON MR#: [id number] : 1975 SEX: F AGE: 49 LOCATION: [facility] ORDER 1 STATUS: [facility] REPORT#: [id number] SERVICE 1 REASON: cough ORDERING PHYSICIAN: ZEUS BONDS DO PROCEDURE: CXR1VW - CHEST 1VW CHEST 1VW REASON: cough COMPARISON: 01/12/2023 FINDINGS: Single view of the chest was obtained. Lungs are clear. Heart size is normal. There is no pulmonary vascular congestion. Mediastinum and bony thorax appear unremarkable. IMPRESSION: 1. Normal single view chest x-ray. DICTATED BY: JERILYN LOPES MD DATE: 08/10/24 1012 ELECTRONICALLY SIGNED BY: JERILYN LOPES MD DATE: 08/10/24 1015 [facility] MDM: Differential diagnosis: URI, strep pharyngitis, On physical exam airway is patent oropharyngeal erythema but no peritonsillar abscess. Patient will be discharged in stable condition she was states he feels much better with the medication. Antibiotics will be provided. ED Course Orders Procedure Category Date Status Time Influenza Type A & B, LAB 08/10/24 Complete Rapid 06:20 Rapid (Group A Strep) LAB 08/10/24 Complete 06:20 Covid Rna Naat LAB 08/10/24 Complete 06:20 Chest 1vw RAD 08/10/24 Resulted 06:22 Albuterol 0.083% PHA 08/10/24 Complete 2.5mg/3ml (Proventil 06:30 Ipratropium 0.5 PHA 08/10/24 Complete Mg/2.5 Ml Inh 06:30 Acetaminophen-Codeine PHA 08/10/24 Complete Elixer (Tylenol-Co 08:39 Ketorolac PHA 08/10/24 Complete Tromethamine 30mg/Ml 10:00 Methylprednisolone PHA 08/10/24 Complete Succ 125mg (Solu-Medr 10:00 Current Medications Medications (Trade) Dose Ordered Sig/Lorene Route PRN Reason Start Time Stop Time Status Last Admin Dose Admin Acetaminophen/ Codeine Phosphate (TYLenol-coDEINE (120/12MG 5ML) ELIXIR) 10 ml ONCE STAT PO 08/10/24 08:39 08/10/24 08:43 DC 08/10/24 09:01 Albuterol Sulfate (Proventil 0.083% 2.5mg/3ml) 2.5 mg ONCE ONCE IH 08/10/24 06:30 08/10/24 06:31 DC 08/10/24 06:45 Ipratropium [place] (AtrovENT UD) 0.5 mg ONCE ONCE IH 08/10/24 06:30 08/10/24 06:31 DC 08/10/24 06:45 Ketorolac Tromethamine (toRADol) 30 mg ONCE ONCE IM 08/10/24 10:00 08/10/24 10:01 DC 08/10/24 10:26 Methylprednisolone Sodium Succinate (Solu-medROL 125MG) 60 mg ONCE ONCE IM 08/10/24 10:00 08/10/24 10:01 DC 08/10/24 10:28 Vital Signs Date Time Temp Pulse Resp B/P (MAP) Pulse Ox O2 Delivery O2 Flow Rate FiO2 08/10/24 07:45 98.1 86 20 123/74 99 Room Air* 0 21 08/10/24 06:46 83 20 08/10/24 06:36 96 20 120/80 99 Room Air* 0 08/10/24 06:10 97.2 119 16 120/61 100 Room Air 0 08/10/24 06:09 97.2 119 16 120/61 100 Room Air* 0 21 DX & DISP Disposition: Discharge Departure Impression: Primary Impression: Pharyngitis Condition: Stable Scripts Loratadine (Loratadine) 10 Mg Tablet 1 TAB PO DAILY for allergy symptoms for 30 Days, #30 TAB 0 Refills Prov: ERNA FAUST MD 08/10/24 Fluticasone Propionate (Flonase Nasal [place]) 50 Mcg/Actuation [place] 2 SPRAY NS DAILY, #16 GM 0 Refills Prov: ERNA FAUST MD 08/10/24 Amoxicillin (Amoxicillin) 500 Mg Capsule 1 CAP PO TID for 10 Days, #30 CAP 0 Refills Prov: ERNA FAUST MD 08/10/24 Additional Instructions: FOLLOW-UP WITH PRIMARY CARE PROVIDER IN 1 TO 2 DAYS. TAKE MEDICATIONS DIRECTED HERE IN THE EMERGENCY ROOM. OKAY TO CONTINUE HOME MEDICATIONS UNLESS OTHERWISE DISCUSSED DURING YOUR VISIT IN THE EMERGENCY ROOM TODAY. RETURN TO YOUR NEAREST EMERGENCY ROOM IF SYMPTOMS WORSEN OR IF THERE IS NO IMPROVEMENT. CALL 911 IF YOU NEED IMMEDIATE ASSISTANCE. TAKE TYLENOL [id number] NEEDED AND IF NO CONTRAINDICATIONS ARE PRESENT. INCREASE ORAL HYDRATION. A WOUND CULTURE OR URINE CULTURE WAS ORDERED HERE IN THE EMERGENCY ROOM DEPARTMENT PLEASE FOLLOW-UP WITH PRIMARY CARE PROVIDER AND ADVISE THEM TO GET REPEAT PORTS FROM OUR FACILITY. IF YOU HAD ANY MILAGRO WRAP/SPLINTS THAT WERE APPLIED HERE, PLEASE DO NOT REMOVE THEM UNTIL YOU SEE YOUR PRIMARY CARE OR SPECIALTY. Referrals: Referrals: MARIPOSA FERNÁNDEZ DO (PCP) Time of Disposition: 10:49 ERNA FAUST MD Aug 10, 2024 08:39
[2024-08-10] MEDS: acetaMINOPHEN/coDEINE 120/12MG 5ML PO STA (09:01)
--- NOTE | 2024-08-10 10:15 | HMCIMG ---
CHEST 1VW REASON: cough COMPARISON: 01/12/2023 FINDINGS: Single view of the chest was obtained. Lungs are clear. Heart size is normal. There is no pulmonary vascular congestion. Mediastinum and bony thorax appear unremarkable. IMPRESSION: 1. Normal single view chest x-ray.
[2024-08-10] MEDS: ketOROlac 30MG VIAL (30MG/ML) IM ONE (10:26)
[2024-08-10] MEDS: Solu-medROL 125MG VIAL IM ONE (10:28)
[2024-08-10] MEDS ORDERED: AMOX500C2 PO (10:50)
[2024-08-10] MEDS ORDERED: FLUT16H NS (10:50)
[2024-08-10] MEDS ORDERED: LORA10TA7 PO (10:50)
[2024-08-10 10:56] VITALS: BP 98/57; PULSE 64; RESP 20; TEMP 97.6; O2SAT 97
== END 2024-08-10 11:18 | disposition home or self-care (01) ==
LOC: EDH 06:08
DX: J02.9 Acute pharyngitis, unspecified (principal); J44.9 Chronic obstructive pulmonary disease, unspecified; F41.9 Anxiety disorder, unspecified; Z79.1 Long term (current) use of non-steroidal anti-inflammatories (NSAID); Z79.899 Other long term (current) drug therapy; Z90.49 Acquired absence of other specified parts of digestive tract; Z20.822 Contact with and (suspected) exposure to COVID-19
CPT/HCPCS: 99285; 71045; 87635; 87880; 87804 ×2; 96372 ×2; 94640; J1885; J2919

== ENCOUNTER 2024-09-11 10:06 | Emergency (ER) | payer OTHER ==
[~2024-09-11] VITALS: Ht 160 cm; Wt 85.7 kg
[~2024-09-11 10:06] MED LIST changes: +AMOX500C2 PO; +FLUT16H NS; +LORA10TA7 PO
--- NOTE | 2024-09-11 10:15 | ERN ---
General Chief Complaint: Back Pain-No Injury Stated Complaint: ABDOMINAL PAIN Time Seen by MD: 10:10 History of Present Illness Initial Comments 49F presents for 24 hours of RUQ pain. Pain mostly in the right upper quadrant, does radiate to her right flank and right back. It waxes and wanes. It is severe at times. Feels nausea. She has a decreased appetite. No vomiting. No diarrhea. She does report some dark colored urine. No radiation to the right lower quadrant. She reports history of cholecystectomy, otherwise no medical or surgical history. She does feel bloated. No rashes. No chest pain. No cough. Allergies: Coded Allergies: No Known Drug Allergies (Verified Allergy, Unknown, 06/04/16) Home Meds Active Scripts Loratadine (Loratadine) 10 Mg Tablet, 1 TAB PO DAILY for allergy symptoms for 30 Days, #30 TAB 0 Refills Prov:ERNA FAUST MD 08/10/24 Fluticasone Propionate (Flonase Nasal [place]) 50 Mcg/Actuation [place], 2 SPRAY NS DA LU[place], #16 GM 0 Refills Prov:ERNA FAUST MD 08/10/24 Amoxicillin (Amoxicillin) 500 Mg Capsule, 1 CAP PO TID for 10 Days, #30 CAP 0 Refills Prov:ERNA FAUST MD 08/10/24 Omeprazole (Omeprazole) 40 Mg Capsule.dr, 1 CAP PO DAILY for 30 Days, #30 CAP 0 Refills Prov:SHASHANK WILSON MD 04/05/24 Ondansetron (Ondansetron Odt) 4 Mg Tab.rapdis, 4 MG PO TIDP PRN for NAUSEA, #30 TAB 0 Refills Prov:YOLANDA TORRES MD 12/02/23 Omeprazole (Omeprazole) 20 Mg Tab.rap.dr, 20 MG PO DAILY for 14 Days, #15 0 Refills Prov:YOLANDA TORRES MD 12/02/23 Prednisone (Prednisone) 20 Mg Tablet, 1 TAB PO AD for 6 Days, #14 TAB 0 Refills TAKE 3 TAB BY MOUTH daily X3 DAYS, THEN TAKE 2 TAB BY MOUTH daily X2 DAYS, THEN TAKE 1 TAB BY MOUTH ONCE A DAY X1 DAY. Prov:ZEN SCHWARZ MD 05/18/23 Ibuprofen (Motrin/Advil) 800 Mg Tab, 800 MG PO TID, #30 TAB Prov:ZEN SCHWARZ MD 05/18/23 Pantoprazole Sodium (Protonix) 40 Mg Tablet., 40 MG PO DAILY, #30 TAB Prov:GISEL COSMENeriZEUS TICO 05/11/22 Reported Medications Citalopram Hydrobromide (Citalopram HBr) 20 Mg Tablet, 20 MG PO DAILY, TAB 02/02/18 Past Medical History Past Medical History: Anxiety, COPD Past Surgical History: Cholecystectomy Family History Family History: Negative Social History Social History: Negative, Lives with family Female( History) History: Not Applicable ROS Dictation CONSTITUTIONAL: No chills, no fever, no weakness, no diaphoresis, no malaise. HEAD/FACE: No signs of trauma. EENT: No eye pain, no blurred vision, no tearing, no double vision, no ear pain, no ear discharge, no nose pain, no nasal congestion, no throat pain, no throat swelling, no mouth pain. RESPIRATORY: No cough, no orthopnea, no SOB, no stridor, no wheezing. CARDIOVASCULAR: No chest pain, no edema, no palpitations, no syncope. GASTROINTESTINAL/ABDOMINAL: Right upper quadrant pain, nausea, bloating right flank pain GENITOURINARY: No abnormal discharge, no dysuria, no frequent urination, no hematuria. No complaints of pain in the genitals. MUSCULOSKELETAL: No back pain, no gout, no joint pain, no joint swelling, no muscle pain, no muscle stiffness, no neck pain. INTEGUMENTARY: No change in color, no change in hair/nails, no dryness, no lesion, no lumps, no rash. NEUROLOGICAL/PSYCH: No anxiety, not depressed, no emotional problem, no headach e, no numbness, no pre-existing deficit, no history of seizures, no tremors, no weakness. HEMATOLOGIC/LYMPHATIC: Not anemic, no history of blood clots, no apparent bleeding, no bruising, glands not swollen. All Systems Negative, Except as Noted. Physical Exam Physical Exam Dictation VITAL SIGNS: Reviewed. GENERAL APPEARANCE: Alert, oriented x3, no acute distress HEAD AND FACE: Non-traumatic. EYES: PERRL, pink conjunctivas, eyelid no trauma, anterior chamber clear. EARS: Pinnas intact and no signs of trauma or erythema. Ear canals clear and no discharge. TMs no erythema. NOSE: No discharge, no bleeding. OROPHARYNX: Mouth normal, teeth no caries, tongue pink. Pharynx clear, no erythema. Tonsils no exudates, no abscesses noted. Mucous membrane moist. NECK: Supple, non-tender, no thyromegaly, no masses, no JVD, no bruits. BREAST: Deferred. CHEST: No tenderness, no crepitus, no paradoxical movement, no retractions. LUNGS: Clear, well-ventilated, symmetric, no rales, no wheezing, no rhonchi, no stridor, good breath sounds bilaterally. HEART: Regular rate, regular rhythm, no murmur, no gallops. VASCULAR: No peripheral edema. ABDOMEN: Soft, positive bowel sounds, nondistended, no guarding, nontender, no rebound, no masses no hepatomegaly, no splenomegaly, no Boyd's sign, no hernias. RECTAL: Deferred. GENITAL: Deferred. NEUROLOGICAL: Normal speech, gross motor function intact, gross sensory function intact. MUSCULOSKELETAL: Neck nontender, full range of motion, back nontender, full range of motion. EXTREMITIES: Nontender, full range of motion. SKIN: Color pink, dry, no turgor, no rash, no lacerations, no abrasions, no contusions. LYMPHATICS: Deferred. Results Laboratory and Microbiology Lab and Micro Result Laboratory Tests Test 09/11/24 10:23 09/11/24 10:35 White Blood Count 6.2 K/uL (4.8-10.8) Red Blood Count 4.18 MIL/uL (4.00-5.50) Hemoglobin 8.0 g/dL (12.0-16.0) L Hematocrit 29.7 % (36-48) L Mean Corpuscular Volume 71.1 fL (79-99) L Mean Corpuscular Hemoglobin 19.1 pg (27.0-33.0) L Mean Corpuscular Hemoglobin Concent 26.9 g/dL (32.0-36.0) L Red Cell Distribution Width 19.7 % (11.0-15.5) H Platelet Count 381 K/uL (130-400) Mean Platelet Volume 10.4 fL (7.5-10.5) Immature Granulocyte % (Auto) 0.2 % (0-1) Neutrophils (%) (Auto) 60.4 % (40.0-77.0) Lymphocytes (%) (Auto) 25.6 % (21.0-51.0) Monocytes (%) (Auto) 9.3 % (3.0-13.0) Eosinophils (%) (Auto) 3.9 % (0.0-8.0) Basophils (%) (Auto) 0.6 % (0.0-5.0) Neutrophils # (Auto) 3.8 K/uL (1.8-7.7) Lymphocytes # (Auto) 1.6 K/uL (1.0-4.8) Monocytes # (Auto) 0.6 K/uL (0.1-1.0) Eosinophils # (Auto) 0.24 K/uL (0.00-0.70) Basophils # (Auto) 0.04 K/uL (0.00-0.20) Absolute Immature Granulocyte (auto 0.01 K/uL (0-1) Nucleated Red Blood Cells 0.0 % (0.0-0.19) Red Blood Cell Morphology See comments Sodium Level 136 mmol/L (136-145) Potassium Level 3.5 mmol/L (3.5-5.1) Chloride Level 101 mmol/L (101-111) Carbon Dioxide Level 32 mmol/L (21-32) Blood Urea Nitrogen 6 mg/dL (7-18) L Creatinine 0.7 mg/dL (0.5-1.0) Glomerular Filtration Rate Calc 106 mL/min (>90) Random Glucose 95 mg/dL (70-105) Total Calcium 8.9 mg/dL (8.5-10.1) Total Bilirubin 0.4 mg/dL (0.2-1.0) Direct Bilirubin 0.1 mg/dL (0.0-0.3) Aspartate Amino Transf (AST/SGOT) 14 U/L (10-37) Alanine Aminotransferase (ALT/SGPT) 14 U/L (12-78) Alkaline Phosphatase 75 U/L (50-136) Troponin I High Sensitivity < 4 ng/L (4-50) L Total Protein 7.6 g/dL (6.0-8.3) Albumin 3.5 g/dL (3.5-5.0) Lipase 47 U/L (16-77) Urine Color YELLOW (YELLOW) Urine Appearance CLOUDY (CLEAR) H Urine pH 6.5 (5.0-8.0) Urine Specific [place] 1.024 (1.001-1.031) Urine Protein 20 mg/dL (NEGATIVE) H Urine Glucose (UA) NEGATIVE mg/dL (NEGATIVE) Urine Ketones NEGATIVE mg/dL (NEGATIVE) Urine Occult Blood +- (TRACE) (NEGATIVE) H Urine Nitrate NEGATIVE (NEGATIVE) Urine Bilirubin NEGATIVE mg/dL (NEGATIVE) Urine Urobilinogen 0.2 mg/dL (0.2-1.0) Urine Leukocyte Esterase 75 Mirella/uL (NEGATIVE) H Urine RBC 2-5 /HPF (0-1) H Urine WBC 11-25 /HPF (0-1) H Urine Squamous Epithelial Cells MANY /HPF (0-2) Urine Bacteria None /HPF (None Seen) MDM CC: Right upper quadrant pain, back pain, nausea beginning yesterday Historian: Patient Comorbidities: Anxiety, COPD, cholecystectomy Limitations by social determinants of health: None Differential diagnosis: Biliary disease, pancreatitis, gastritis, liver disease, UTI, kidney stone, musculoskeletal pain, other. Vital signs: Stable, remained stable here in the ER Labs ( independently ordered and interpreted by me ): CBC shows microcytic anemia hemoglobin 8.0, baseline per patient. No leukocytosis or shift. Chemistry panel is unremarkable. Liver enzymes are normal. Lipase is normal. Troponin is normal. Urinalysis shows occult blood, leuk esterase, and some WBCs. CXR (independently ordered and interpreted by me ): No focal infiltrates, no cardiomegaly, no pleural effusion. CT scan of the abdomen and pelvis without contrast (independently ordered and interpreted by me ): No obvious surgical pathology, no signs of kidney disease, no signs of kidney stone, no other major abnormalities. Patient received 1 L lactated Ringer's, IV Toradol, 1 g of IV Rocephin Based on the patient's presentation I have very low suspicion for any surgical pathology, Mesenteric ischemia, pancreatitis, biliary pathology, electrolyte abnormality, vascular pathology, sepsis, or other life threats at this time. Plan: Patient does have some bacteria in leuk esterase in her urine, we will giv e a short course of antibiotics. I have very low suspicion this is pyelonephritis. It may be more related to her abdomen. We will recommend sjss-jxy-gyceylj gastritis medications such as Maalox and possibly a PPI. We will also recommend PCP follow up. ED Course Orders Procedure Category Date Status Time Cbc With Differential LAB 09/11/24 Complete 10:10 Troponin I High LAB 09/11/24 Complete Sensitivity 10:10 Urinalysis Profile LAB 09/11/24 Complete 10:10 Ct Abdomen/Pelvis W/O CT 09/11/24 Resulted Contrast 10:10 Chest 1vw RAD 09/11/24 Resulted 10:10 Lipase LAB 09/11/24 Complete 10:10 Basic Metabolic Panel LAB 09/11/24 Complete 10:10 Hepatic Function Panel LAB 09/11/24 Complete 10:10 Lactated Ringers PHA 09/11/24 Complete 1000ml (Lactated 10:30 Ketorolac PHA 09/11/24 Complete Tromethamine 15mg/Ml 10:30 Culture Urine SHANNAN 09/11/24 In Process 11:00 Ceftriaxone 1g Vial PHA 09/11/24 In Process (Rocephine 1g Inj) 13:30 Current Medications Medications (Trade) Dose Ordered Sig/Lorene Route PRN Reason Start Time Stop Time Status Last Admin Dose Admin Ketorolac Tromethamine (toRADol) 15 mg ONCE ONCE IV 09/11/24 10:30 09/11/24 10:31 DC 09/11/24 12:36 Lactated Ringer's 1,000 ml @ 0 mls/hr ONCE ONCE IV 09/11/24 10:30 09/11/24 10:31 DC 09/11/24 12:36 Vital Signs Date Time Temp Pulse Resp B/P (MAP) Pulse Ox O2 Delivery O2 Flow Rate FiO2 09/11/24 12:25 97.0 79 20 143/81 98 Room Air* 0 21 09/11/24 10:09 97.0 79 20 143/81 98 Room Air DX & DISP Disposition: Discharge Departure Impression: Primary Impression: Right upper quadrant pain Additional Impressions: UTI (urinary tract infection), Microcytic anemia Condition: Stable Scripts Cephalexin (Cephalexin) 500 Mg Tablet 1 TAB PO BID for 5 Days, #10 TAB 0 Refills Prov: CAMMIEZEUS Pineda DO 09/11/24 Additional Instructions: There are no life-threatening or surgical findings on your workup here today. Your urinalysis does show some bacteria concerning for urinary tract infection. You received a dose of antibiotics in the ER, and I have prescribed cephalexin. Take the entire course as prescribed. Your symptoms may be related to gastritis. I recommend diet modification. Avoid heavy meals. Avoid spicy foods. Avoid processed foods, greasy foods, caffeine, and alcohol. Eat small frequent meals rather than large meals. Do not eat late at night. You can try fcsp-msw-hqnekna indigestion medications such as Maalox or Tums. You can also consider starting omeprazole and taking this medication daily for a couple of weeks. Your vital signs have been stable here in the ER. Your blood work (CBC, BMP, liver function tests, lipase) shows anemia, but is otherwise normal. The CT scan of your abdomen is unremarkable. I recommend that you follow up with your primary doctor later this week if you continue with symptoms. Please return to the emergency department if you have any concerns. Referrals: MARIPOSA FERNÁNDEZ DO (PCP) ZEUS BONDS DO Sep 11, 2024 10:14
[2024-09-11 10:44] LABS: BASOPHILS # (AUTO) 0.04 K/uL (0.00-0.20); BASOPHILS % (AUTO) 0.6 % (0.0-5.0); EOSINOPHILS # (AUTO) 0.24 K/uL (0.00-0.70); EOSINOPHILS % (AUTO) 3.9 % (0.0-8.0); HEMATOCRIT 29.7 % (36-48); IMMATURE GRANULOCYTE ABSOLUTE 0.01 K/uL (0-1); LYMPHOCYTES # (AUTO) 1.6 K/uL (1.0-4.8); LYMPHOCYTES % (AUTO) 25.6 % (21.0-51.0); MEAN CORPUSCULAR HEMOGLOBIN 19.1 pg (27.0-33.0); MEAN CORPUSCULAR HGB CONC 26.9 g/dL (32.0-36.0); MEAN CORPUSCULAR VOLUME 71.1 fL (79-99); MONOCYTES # (AUTO) 0.6 K/uL (0.1-1.0); MONOCYTES % (AUTO) 9.3 % (3.0-13.0); NEUTROPHILS # (AUTO) 3.8 K/uL (1.8-7.7); NEUTROPHILS % (AUTO) 60.4 % (40.0-77.0); PLATELET COUNT (AUTO) 381 K/uL (130-400); RED BLOOD CELL COUNT(AUTO) 4.18 MIL/uL (4.00-5.50); RED CELL DISTRIBUTION WIDTH 19.7 % (11.0-15.5); WHITE BLOOD COUNT (AUTO) 6.2 K/uL (4.8-10.8)
--- NOTE | 2024-09-11 10:47 | HMCIMG ---
CHEST 1VW HISTORY: Pain COMPARISON: 08/10/2024 FINDINGS: A frontal projection of the chest was obtained. No acute pulmonary infiltrates is seen. The heart is borderline enlarged. Prominent interstitial markings are seen. Degenerative changes are seen. IMPRESSION: 1. No acute pulmonary infiltrate is seen.
[2024-09-11 10:48] LABS: CREATININE 0.7 mg/dL (0.5-1.0); POTASSIUM 3.5 mmol/L (3.5-5.1)
[2024-09-11 10:52] LABS: ALBUMIN 3.5 g/dL (3.5-5.0); BILIRUBIN,DIRECT 0.1 mg/dL (0.0-0.3); BILIRUBIN,TOTAL 0.4 mg/dL (0.2-1.0); TOTAL PROTEIN, SERUM 7.6 g/dL (6.0-8.3)
[2024-09-11 10:58] LABS: APPEARANCE,URINE CLOUDY (CLEAR); BILIRUBIN,URINE NEGATIVE (NEGATIVE); COLOR,URINE YELLOW (YELLOW); GLUCOSE, URINE (UA) NEGATIVE (NEGATIVE); KETONES,URINE NEGATIVE (NEGATIVE); LEUKOCYTE ESTERASE ,URINE 75 Leu/uL (NEGATIVE); NITRATE,URINE NEGATIVE (NEGATIVE); PH,URINE 6.5 (5.0-8.0); PROTEIN,URINE 20 mg/dL (NEGATIVE); UROBILINOGEN,URINE 0.2 mg/dL (0.2-1.0)
[2024-09-11 11:00] LABS: ADD UA MICROSCOPIC YES
[2024-09-11 11:19] LABS: MUCUS,URINE FEW LPF (None Seen); SQUAMOUS EPITHELIAL CELL,UR MANY /HPF (0-2)
[2024-09-11 12:25] VITALS: BP 143/81; PULSE 79; RESP 20; TEMP 96.9; O2SAT 98
[2024-09-11] MEDS: ketOROlac 15MG/ML VIAL (15MG/ML) IV ONE (12:36)
[2024-09-11] MEDS: LACTATED RINGERS 1000ML 1,000 ML IV ONE (12:36)
--- NOTE | 2024-09-11 12:58 | HMCIMG ---
CT ABDOMEN/PELVIS W/O CONTRAST HISTORY: Right flank pain. COMPARISON: 07/26/2024 TECHNIQUE: Multiple sequential axial images of the abdomen and pelvis were obtained from the dome of the diaphragm through symphysis pubis. Patient was not given contrast through intravenous route. Oral contrast was not given. FINDINGS: No pleural effusion is seen bilaterally. There is no evidence of parenchymal disease or pulmonary nodule of the visualized lower lungs. Degenerative changes of the thoracolumbar spine are present. The heart is not enlarged. The liver, spleen, adrenal glands and pancreas are unremarkable. There is no evidence of hydronephrosis bilaterally. No evidence of renal stone is seen. Fecal material is seen in the colon. There are normal size retroperitoneal and mesenteric lymph nodes. No ascites is seen. Appendix is not well seen and limiting evaluation. Pelvic sidewalls are symmetric bilaterally. Bladder is poorly distended. IMPRESSION: 1. Fecal material is seen in the colon. CT was performed with one or more following dose reduction techniques: automated exposure control, adjustment of the mA and kv according to patient's size, or use of a iterative reconstruction technique.
[2024-09-11] MEDS ORDERED: CEPH500T PO (13:13)
[2024-09-11] MEDS: cefTRIAXone 1G VIAL IVPB ONE (13:22)
[2024-09-11] MEDS: MAG/ALUM/SIMETH 30 ML UDCUP PO ONE ×2 (13:44→13:46)
[2024-09-11] MEDS: LIDOCAINE HCL 2% VISCOUS 15 ML UDCUP PO ONE (13:46)
== END 2024-09-11 13:51 | disposition home or self-care (01) ==
LOC: EDH 10:06
DX: N39.0 Urinary tract infection, site not specified (principal); R10.11 Right upper quadrant pain; D50.9 Iron deficiency anemia, unspecified; F41.9 Anxiety disorder, unspecified; J44.9 Chronic obstructive pulmonary disease, unspecified; Z79.1 Long term (current) use of non-steroidal anti-inflammatories (NSAID); Z79.899 Other long term (current) drug therapy; Z90.49 Acquired absence of other specified parts of digestive tract
CPT/HCPCS: 99285; 74176; 96374; 71045; 96375; 80076; 84484; 80048; 83690; 85025; 87086; 81001; 36415; J1885; J0696

== ENCOUNTER 2024-09-13 02:13 | Emergency (ER) | payer OTHER ==
[~2024-09-13] VITALS: Ht 162.6 cm; Wt 93.9 kg
[~2024-09-13 02:13] MED LIST changes: +CEPH500T PO
[2024-09-13 03:37] VITALS: BP 148/74; PULSE 99; RESP 18; TEMP 98.5; O2SAT 98
[2024-09-13] MEDS ORDERED: ACYC-138 PO (03:49)
[2024-09-13] MEDS ORDERED: ACYC5CRE2 TP (03:50)
--- NOTE | 2024-09-13 03:51 | ERN ---
General Chief Complaint: Abdominal Pain Stated Complaint: C/O RUQ PAIN RADIATING TO BACK WITH NAUSEA Time Seen by MD: 02:40 History of Present Illness Initial Comments Patient is a 49-year-old female who has recurrent right upper quadrant pain radiating to the back that is occasionally associated with nausea. She was seen in the emergency room approximately two days ago with similar symptoms and she had an extensive workup including CT scans and laboratory analysis that was all normal. She was given a short course of antibiotics and some medication to help with bowel movements. I talked to the patient today and she stated that nothing really helped and her pain is still there. Allergies: Coded Allergies: No Known Drug Allergies (Verified Allergy, Unknown, 06/04/16) Home Meds Active Scripts Cephalexin (Cephalexin) 500 Mg Tablet, 1 TAB PO BID for 5 Days, #10 TAB 0 Refills Prov:ZEUS BONDS DO 09/11/24 Loratadine (Loratadine) 10 Mg Tablet, 1 TAB PO DAILY for allergy symptoms for 30 Days, #30 TAB 0 Refills Prov:ERNA FAUST MD 08/10/24 Fluticasone Propionate (Flonase Nasal [place]) 50 Mcg/Actuation [place], 2 SPRAY NS DAILY, #16 GM 0 Refills Prov:ERNA FAUST MD 08/10/24 Amoxicillin (Amoxicillin) 500 Mg Capsule, 1 CAP PO TID for 10 Days, #30 CAP 0 Refills Prov:ERNA FAUST MD 08/10/24 Omeprazole (Omeprazole) 40 Mg Capsule., 1 CAP PO DAILY for 30 Days, #30 CAP 0 Refills Prov:SHASHANK WILSON MD 04/05/24 Ondansetron (Ondansetron Odt) 4 Mg Tab.rapdis, 4 MG PO TIDP PRN for NAUSEA, #30 TAB 0 Refills Prov:YOLANDA TORRES MD 12/02/23 Omeprazole (Omeprazole) 20 Mg Tab.rap., 20 MG PO DAILY for 14 Days, #15 0 Refills Prov:YOLANDA TORRES MD 12/02/23 Prednisone (Prednisone) 20 Mg Tablet, 1 TAB PO AD for 6 Days, #14 TAB 0 Refills TAKE 3 TAB BY MOUTH daily X3 DAYS, THEN TAKE 2 TAB BY MOUTH daily X2 DAYS, THEN TAKE 1 TAB BY MOUTH ONCE A DAY X1 DAY. Prov:ZEN SCHWARZ MD 05/18/23 Ibuprofen (Motrin/Advil) 800 Mg Tab, 800 MG PO TID, #30 TAB Prov:ZEN SCHWARZ MD 05/18/23 Pantoprazole Sodium (Protonix) 40 Mg Tablet.dr, 40 MG PO DAILY, #30 TAB Prov:DES COSME EPIC AMBULATORY ANALYST 05/11/22 Reported Medications Citalopram Hydrobromide (Citalopram HBr) 20 Mg Tablet, 20 MG PO DAILY, TAB 02/02/18 Past Medical History Past Medical History: Anemia Past Surgical History: Cholecystectomy Family History Family History: Negative Social History Social History: Negative, Lives with family Female( History) History: Not Applicable LMP: Aug 27, 2024 ROS Dictation Review of systems is negative except for what is in the HPI. Patient was given antibiotics for a possible UTI but she never had symptoms of a UTI. Physical Exam General Appearance: (+) no apparent distress Orientation: (+) oriented x 3 Eye: bilateral eye normal inspection, bilateral eye PERRL, bilateral eye EOMI Ear, Nose, Throat: (+) hearing grossly normal, (+) normal ENT inspection, (+) moist mucous membraine Neck: (+) normal inspection, (+) supple Respiratory: (+) chest non-tender, (+) lungs clear, (+) well ventilated Heart: (+) regular Gastrointestinal Comment Patient does have tenderness on her right flank just below the ribcage and it does radiate to her back. The abdomen is soft in that region. I lifted her shirt to look at the area of her abdomen that was affected and I saw the beginnings of a herpetic rash. I placed pinpoint pressure right on the rash in the patient stated that is where her pain is. She had her has been look at her skin in that area and he said the rash in that area is new. There was no surrounding erythema the lesions look herpetic MDM Given the extent of the patient's workup from two days prior and the classic herpetic rash as the location of her pain in the fact that it radiates to her back along a dermatome I feel confident this is an early case of shingles. We will treat her with lidocaine patches cream and antiviral therapy. Of note the patient does say that she had chickenpox as a child. ED Course Vital Signs Date Time Temp Pulse Resp B/P (MAP) Pulse Ox O2 Delivery O2 Flow Rate FiO2 09/13/24 02:15 97.9 75 20 135/65 98 Room Air DX & DISP Disposition: Discharge Departure Impression: Primary Impression: Shingles rash Condition: Stable Scripts Acyclovir (Zovirax) 5 % Cream..g. 1 APPL TP 5XDAY for 5 Days, #5 GM 0 Refills apply to affected area(s) Prov: TERESA NGUYEN MD 09/13/24 Acyclovir (Acyclovir) 800 Mg Tablet 1 TAB PO 5XDAY for 7 Days, #35 TAB 0 Refills Prov: TERESA NGUYEN MD 09/13/24 Referrals: MARIPOSA FERNÁNDEZ DO (PCP) TERESA NGUYEN MD Sep 13, 2024 03:50
[2024-09-13] MEDS: ketOROlac 15MG/ML VIAL (15MG/ML) ONE (03:57)
[2024-09-13] MEDS: ketOROlac 15MG/ML VIAL (15MG/ML) IM ONE (03:57)
== END 2024-09-13 04:45 | disposition home or self-care (01) ==
LOC: EDH 02:13
DX: B02.9 Zoster without complications (principal); Z79.1 Long term (current) use of non-steroidal anti-inflammatories (NSAID); Z79.899 Other long term (current) drug therapy; Z90.49 Acquired absence of other specified parts of digestive tract
CPT/HCPCS: 99284; 96372; J1885

== ENCOUNTER 2025-02-26 09:00 | Emergency (ER) | payer OTHER ==
[~2025-02-26] VITALS: Ht 157.5 cm; Wt 88.5 kg
[~2025-02-26 09:00] MED LIST changes: +ACYC-138 PO; +ACYC5CRE2 TP
[2025-02-26 09:22] LABS: IMMATURE GRANULOCYTE ABSOLUTE 0.04 K/uL (0-1); NUCLEATED RED BLOOD CELLS 0.0 % (0.0-0.19); PLATELET COUNT (AUTO) 368 K/uL (130-400); RED BLOOD CELL COUNT(AUTO) 4.66 MIL/uL (4.00-5.50); RED CELL DISTRIBUTION WIDTH 19.5 % (11.0-15.5); WHITE BLOOD COUNT (AUTO) 10.9 K/uL (4.8-10.8)
[2025-02-26 09:30] LABS: CREATININE 0.7 mg/dL (0.5-1.0); GLOMERULAR FILTR. RATE CALC 106.0 mL/min (>90); GLUCOSE,RANDOM 96.0 mg/dL (70-105); SODIUM SERUM 138.0 mmol/L (136-145); UREA NITROGEN, BLOOD 4.0 mg/dL (7-18)
[2025-02-26 09:54] LABS: APPEARANCE,URINE CLOUDY (CLEAR); GLUCOSE, URINE (UA) NEGATIVE (NEGATIVE); LEUKOCYTE ESTERASE ,URINE 500 Leu/uL (NEGATIVE); NITRATE,URINE NEGATIVE (NEGATIVE); OCCULT BLOOD,URINE NEGATIVE (NEGATIVE)
--- NOTE | 2025-02-26 09:56 | NUR ---
SPOUSE OF PT PACING IN [place] ASKED TWICE IF HE COULD WAIT INSIDE BAY WITH PT, FAMILY MEMBERS CANNOT BE IN [place] WAYS PACING. NOTIFED ERIKA URRUTIA TO TALK WITH PT. IF BEHAVIOR CONTINUES.
[2025-02-26 09:57] LABS: HCG,QUALITATIVE URINE NEGATIVE (NEGATIVE)
--- NOTE | 2025-02-26 09:58 | ERN ---
General Chief Complaint: Abdominal Pain Stated Complaint: ABDOMINAL PAIN Time Seen by MD: 09:01 Source: patient History of Present Illness Initial Comments PATIENT IS A 49-YEAR-OLD FEMALE COMING IN COMPLAINING OF LOWER ABDOMINAL PAIN. PER PATIENT THIS HAS BEEN ONGOING FOR A COUPLE OF DAYS. SHE QUANTIFIES THE PAIN AT 8/10 SHARP. Allergies: Coded Allergies: No Known Drug Allergies (Verified Allergy, Unknown, 06/04/16) Home Meds Active Scripts Acyclovir (Zovirax) 5 % Cream..g., 1 APPL TP 5XDAY for 5 Days, #5 GM 0 Refills apply to affected area(s) Prov:TERESA NGUYEN MD 09/13/24 Acyclovir (Acyclovir) 800 Mg Tablet, 1 TAB PO 5XDAY for 7 Days, #35 TAB 0 Refills Prov:TERESA NGUYEN MD 09/13/24 Cephalexin (Cephalexin) 500 Mg Tablet, 1 TAB PO BID for 5 Days, #10 TAB 0 Refills Prov:ZEUS BONDS DO 09/11/24 Loratadine (Loratadine) 10 Mg Tablet, 1 TAB PO DAILY for allergy symptoms for 30 Days, #30 TAB 0 Refills Prov:ERNA FAUST MD 08/10/24 Fluticasone Propionate (Flonase Nasal [place]) 50 Mcg/Actuation [place], 2 SPRAY NS DAILY, #16 GM 0 Refills Prov:ERNA FAUST MD 08/10/24 Amoxicillin (Amoxicillin) 500 Mg Capsule, 1 CAP PO TID for 10 Days, #30 CAP 0 Refills Prov:ERNA FAUST MD 08/10/24 Omeprazole (Omeprazole) 40 Mg Capsule.dr, 1 CAP PO DAILY for 30 Days, #30 CAP 0 Refills Prov:SHASHANK WILSON MD 04/05/24 Ondansetron (Ondansetron Odt) 4 Mg Tab.rapdis, 4 MG PO TIDP PRN for NAUSEA, #30 TAB 0 Refills Prov:YOLANDA TORRES MD 12/02/23 Omeprazole (Omeprazole) 20 Mg Tab.rap.dr, 20 MG PO DAILY for 14 Days, #15 0 Refills Prov:YOLANDA TORRES MD 12/02/23 Prednisone (Prednisone) 20 Mg Tablet, 1 TAB PO AD for 6 Days, #14 TAB 0 Refills TAKE 3 TAB BY MOUTH daily X3 DAYS, THEN TAKE 2 TAB BY MOUTH daily X2 DAYS, THEN TAKE 1 TAB BY MOUTH ONCE A DAY X1 DAY. Prov:ZEN SCHWARZ MD 05/18/23 Ibuprofen (Motrin/Advil) 800 Mg Tab, 800 MG PO TID, #30 TAB Prov:ZEN SCHWARZ MD 05/18/23 Pantoprazole Sodium (Protonix) 40 Mg Tablet.dr, 40 MG PO DAILY, #30 TAB Prov:DES COSME 05/11/22 Reported Medications Citalopram Hydrobromide (Citalopram HBr) 20 Mg Tablet, 20 MG PO DAILY, TAB 02/02/18 Past Medical History Past Medical History: Anemia Past Surgical History: Cholecystectomy Family History Family History: Negative Social History Social History: Negative, Lives with family Female( History) History: Not Applicable ROS Dictation CONSTITUTIONAL: NO CHILLS, NO FEVER, NO WEAKNESS, NO DIAPHORESIS, NO MALAISE. HEAD/FACE: NO SIGNS OF TRAUMA. EENT: NO EYE PAIN, NO BLURRED VISION, NO TEARING, NO DOUBLE VISION, NO EAR PAIN, NO EAR DISCHARGE, NO NOSE PAIN, NO NASAL CONGESTION, NO THROAT PAIN, NO THROAT SWELLING, NO MOUTH PAIN. RESPIRATORY: NO COUGH, NO ORTHOPNEA, NO SOB, NO STRIDOR, NO WHEEZING. CARDIOVASCULAR: NO CHEST PAIN, NO EDEMA, NO PALPITATIONS, NO SYNCOPE. GASTROINTESTINAL/ABDOMINAL: ABDOMINAL PAIN, NO CONSTIPATION, NO DIARRHEA, NO NAUSEA, NO VOMITING. GENITOURINARY: NO ABNORMAL DISCHARGE, NO DYSURIA, NO FREQUENT URINATION, NO HEMATURIA. NO COMPLAINTS OF PAIN IN THE GENITALS. MUSCULOSKELETAL: NO BACK PAIN, NO GOUT, NO JOINT PAIN, NO JOINT SWELLING, NO MUSCLE PAIN, NO MUSCLE STIFFNESS, NO NECK PAIN. INTEGUMENTARY: NO CHANGE IN COLOR, NO CHANGE IN HAIR/NAILS, NO DRYNESS, NO LESION, NO LUMPS, NO RASH. NEUROLOGICAL/PSYCH: NO ANXIETY, NOT DEPRESSED, NO EMOTIONAL PROBLEM, NO HEADACHE, NO NUMBNESS, NO PRE-EXISTING DEFICIT, NO HISTORY OF SEIZURES, NO TREMORS, NO WEAKNESS. HEMATOLOGIC/LYMPHATIC: NOT ANEMIC, NO HISTORY OF BLOOD CLOTS, NO APPARENT BLEEDING, NO BRUISING, GLANDS NOT SWOLLEN. ALL SYSTEMS NEGATIVE, EXCEPT NOTED. Physical Exam Physical Exam Dictation VITAL SIGNS: REVIEWED. GENERAL APPEARANCE: ALERT, ORIENTED X3, NO ACUTE DISTRESS, OBESE. HEAD AND FACE: NON-TRAUMATIC. EYES: PERRL, PINK CONJUNCTIVAS, EYELID NO TRAUMA, ANTERIOR CHAMBER CLEAR. EARS: PINNAS INTACT AND NO SIGNS OF TRAUMA OR ERYTHEMA. EAR CANALS CLEAR AND NO DISCHARGE. TMS NO ERYTHEMA. NOSE: NO DISCHARGE, NO BLEEDING. OROPHARYNX: MOUTH NORMAL, TEETH NO CARIES, TONGUE PINK. PHARYNX CLEAR, NO ERYTHEMA. TONSILS NO EXUDATES, NO ABSCESSES NOTED. MUCOUS MEMBRANE MOIST. NECK: SUPPLE, NON-TENDER, NO THYROMEGALY, NO MASSES, NO JVD, NO BRUITS. BREAST: DEFERRED. CHEST: NO TENDERNESS, NO CREPITUS, NO PARADOXICAL MOVEMENT, NO RETRACTIONS. LUNGS: CLEAR, WELL-VENTILATED, SYMMETRIC, NO RALES, NO WHEEZING, NO RHONCHI, NO STRIDOR, GOOD BREATH SOUNDS BILATERALLY. HEART: REGULAR RATE, REGULAR RHYTHM, NO MURMUR, NO GALLOPS. VASCULAR: NO PERIPHERAL EDEMA. ABDOMEN: SOFT, POSITIVE BOWEL SOUNDS, NONDISTENDED, NO GUARDING, NONTENDER, NO REBOUND, NO MASSES NO HEPATOMEGALY, NO SPLENOMEGALY, NO COLE'S SIGN, NO HERNIAS. RECTAL: DEFERRED. GENITAL: DEFERRED. NEUROLOGICAL: NORMAL SPEECH, GROSS MOTOR FUNCTION INTACT, GROSS SENSORY FUNCTION INTACT. MUSCULOSKELETAL: NECK NONTENDER, FULL RANGE OF MOTION, BACK NONTENDER, FULL RANGE OF MOTION. EXTREMITIES: NONTENDER, FULL RANGE OF MOTION. SKIN: COLOR PINK, DRY, NO TURGOR, NO RASH, NO LACERATIONS, NO ABRASIONS, NO CONTUSIONS. LYMPHATICS: DEFERRED. Results Laboratory and Microbiology Lab and Micro Result Laboratory Tests Test 02/26/25 09:14 02/26/25 09:23 White Blood Count 10.9 K/uL (4.8-10.8) H Red Blood Count 4.66 MIL/uL (4.00-5.50) Hemoglobin 9.1 g/dL (12.0-16.0) L Hematocrit 33.4 % (36-48) L Mean Corpuscular Volume 71.7 fL (79-99) L Mean Corpuscular Hemoglobin 19.5 pg (27.0-33.0) L Mean Corpuscular Hemoglobin Concent 27.2 g/dL (32.0-36.0) L Red Cell Distribution Width 19.5 % (11.0-15.5) H Platelet Count 368 K/uL (130-400) Mean Platelet Volume 10.0 fL (7.5-10.5) Immature Granulocyte % (Auto) 0.4 % (0-1) Neutrophils (%) (Auto) 76.1 % (40.0-77.0) Lymphocytes (%) (Auto) 16.0 % (21.0-51.0) L Monocytes (%) (Auto) 5.8 % (3.0-13.0) Eosinophils (%) (Auto) 1.4 % (0.0-8.0) Basophils (%) (Auto) 0.3 % (0.0-5.0) Neutrophils # (Auto) 8.3 K/uL (1.8-7.7) H Lymphocytes # (Auto) 1.8 K/uL (1.0-4.8) Monocytes # (Auto) 0.6 K/uL (0.1-1.0) Eosinophils # (Auto) 0.15 K/uL (0.00-0.70) Basophils # (Auto) 0.03 K/uL (0.00-0.20) Absolute Immature Granulocyte (auto 0.04 K/uL (0-1) Nucleated Red Blood Cells 0.0 % (0.0-0.19) Red Blood Cell Morphology See comments Sodium Level 138 mmol/L (136-145) Potassium Level 4.0 mmol/L (3.5-5.1) Chloride Level 104 mmol/L (101-111) Carbon Dioxide Level 28 mmol/L (21-32) Blood Urea Nitrogen 4 mg/dL (7-18) L Creatinine 0.7 mg/dL (0.5-1.0) Glomerular Filtration Rate Calc 106 mL/min (>90) Random Glucose 96 mg/dL (70-105) Total Calcium 8.8 mg/dL (8.5-10.1) Urine Color YELLOW (YELLOW) Urine Appearance CLOUDY (CLEAR) H Urine pH 6.5 (5.0-8.0) Urine Specific [place] 1.021 (1.001-1.031) Urine Protein NEGATIVE mg/dL (NEGATIVE) Urine Glucose (UA) NEGATIVE mg/dL (NEGATIVE) Urine Ketones NEGATIVE mg/dL (NEGATIVE) Urine Occult Blood NEGATIVE (NEGATIVE) Urine Nitrate NEGATIVE (NEGATIVE) Urine Bilirubin NEGATIVE mg/dL (NEGATIVE) Urine Urobilinogen 0.2 mg/dL (0.2-1.0) Urine Leukocyte Esterase 500 [place]/uL (NEGATIVE) H Urine RBC 6-10 /HPF (0-1) H Urine WBC TNTC /HPF (0-1) H Urine Squamous Epithelial Cells MANY /HPF (0-2) Urine Amorphous Crystals (Auto) RARE /LPF (None Seen) Urine Bacteria None /HPF (None Seen) Urine HCG, Qualitative NEGATIVE (NEGATIVE) Labs Reviewed?: Yes MDM MDM: DIFFERENTIAL DIAGNOSIS:, ABDOMINAL PAIN, UTI RATIONALE: TESTS CONSIDERED AND ORDERED SECONDARY TO SHARED DECISION MAKING INCLUDE: PREVIOUS OUTSIDE RECORDS REVIEWED: OLD ER VISITS. RISK OF COMPLICATION AND/OR MORBIDITY OR MORTALITY OF PATIENT MANAGEMENT: NONE MEDICATIONS-PER MEDICATION RECONCILIATION NEED FOR HOSPITALIZATION: PATIENT DOES NOT MEET CRITERIA FOR HOSPITALIZATION. NEED FOR EMERGENCY MAJOR/MINOR SURGERY: NO PATIENT IS A 49-YEAR-OLD FEMALE COMING IN COMPLAINING OF LOWER ABDOMINAL PAIN. LABORATORY WORKUP POSITIVE FOR URINARY TRACT INFECTION. PATIENT WILL BE DISCHARGED IN STABLE CONDITION WITH A DIAGNOSIS OF UTI. ED Course Orders Procedure Category Date Status Time Cbc With Differential LAB 02/26/25 Complete 09:08 ,Urine Test LAB 02/26/25 Complete 09:08 Urinalysis Profile LAB 02/26/25 Complete 09:08 Basic Metabolic Panel LAB 02/26/25 Complete 09:08 0.9%Nacl 1000ml (Ns PHA 02/26/25 Complete 1000ml) 10:00 Tramadol Hcl (Ultram) PHA 02/26/25 Complete 10:00 Pantoprazole 40mg Inj PHA 02/26/25 Complete (Protonix 40mg Inj 10:00 Culture Urine SHANNAN 02/26/25 In Process 10:00 Ondansetron 4mg Inj PHA 02/26/25 In Process (Zofran 4mg Inj) 11:00 Ondansetron 4mg Inj PHA 02/26/25 Complete (Zofran 4mg Inj) 10:32 Current Medications Medications (Trade) Dose Ordered Sig/Lorene Route PRN Reason Start Time Stop Time Status Last Admin Dose Admin Ondansetron HCl (zoFRAN 4MG INJ) 4 mg ONCE ONCE IVP 02/26/25 11:00 02/26/25 11:01 02/26/25 10:44 Ondansetron HCl (zoFRAN 4MG INJ) 4 mg STK-MED ONCE .ROUTE 02/26/25 10:32 02/26/25 10:32 DC Pantoprazole Sodium (PROTonix 40MG INJ) 40 mg ONCE ONCE IVP 02/26/25 10:00 02/26/25 10:01 DC 02/26/25 10:07 Sodium Chloride 1,000 ml @ 0 mls/hr ONCE ONCE IV 02/26/25 10:00 02/26/25 10:01 DC 02/26/25 10:07 Tramadol HCl (UltRAM) 50 mg ONCE ONCE PO 02/26/25 10:00 02/26/25 10:01 DC 02/26/25 10:07 Vital Signs Date Time Temp Pulse Resp B/P (MAP) Pulse Ox O2 Delivery O2 Flow Rate FiO2 02/26/25 09:05 97.5 78 16 123/52 100 Room Air* 0 21 02/26/25 09:01 97.5 78 16 123/52 100 Room Air 0 DX & DISP Disposition: Discharge Departure Impression: Primary Impression: UTI (urinary tract infection) Condition: Stable Scripts Hydrocodone/Acetaminophen (Hydrocodon-Acetaminoph 2.5-325) 2.5 Mg-325 Mg Tablet 1 TAB PO TID for 1 Day, #3 TAB 0 Refills Prov: ERNA FAUST MD 02/26/25 Cephalexin Monohydrate (Keflex) 500 Mg Cap 1 CAP PO BID for 10 Days, #20 CAP 0 Refills Prov: ERNA FAUST MD 02/26/25 Additional Instructions: FOLLOW-UP WITH PRIMARY CARE PROVIDER IN 1 TO 2 DAYS. TAKE MEDICATIONS DIRECTED HERE IN THE EMERGENCY ROOM. OKAY TO CONTINUE HOME MEDICATIONS UNLESS OTHERWISE DISCUSSED DURING YOUR VISIT IN THE EMERGENCY ROOM TODAY. RETURN TO YOUR NEAREST EMERGENCY ROOM IF SYMPTOMS WORSEN OR IF THERE IS NO IMPROVEMENT. CALL 911 IF YOU NEED IMMEDIATE ASSISTANCE. TAKE TYLENOL [id number] NEEDED AND IF NO CONTRAINDICATIONS ARE PRESENT. INCREASE ORAL HYDRATION. A WOUND CULTURE OR URINE CULTURE WAS ORDERED HERE IN THE EMERGENCY ROOM DEPARTMENT PLEASE FOLLOW-UP WITH PRIMARY CARE PROVIDER AND ADVISE THEM TO GET REPORTS FROM OUR FACILITY. IF YOU HAD ANY MILAGRO WRAP/SPLINTS THAT WERE APPLIED HERE, PLEASE DO NOT REMOVE THEM UNTIL YOU SEE YOUR PRIMARY CARE OR SPECIALTY. REFERRALS: Referrals: MARIPOSA FERNÁNDEZ DO (PCP) Time of Disposition: 10:49 ERNA FAUST MD Feb 26, 2025 09:58
[2025-02-26 10:00] LABS: ADD UA MICROSCOPIC YES
--- NOTE | 2025-02-26 10:05 | NUR ---
SPOUSE OF PT AGAIN PACING IN FREIRE, THEN WALKS INTO NURSES STATION TOWARD DR FAUST STATED IN HARSH TONE ( MY IS IN PAIN, SHE NEEDS MEDICATION NOW, DR FAUST WAS AT THIS DESK DICTATED, I WALKED UP TO PT ASKED HIM TO WALK BACK TO ROOM WITH ME, SPOUSE WAS YELLING STATED I DONT WANT YOU MY NURSE, GET ME SOMEONE ELSE. INFOMED DR FAUST SPOUSE WAS BEING DIFFICULT WITH ME, DID INFORM SECURITY OF HIS BEHAVIOR. NOTIFED CHARGE NURSE CLAU RASCON AND DIRECTOR EBONY RASCON. OF SITUATION. CHARGE NURSE MOVED PT TO ROOM 16 REPORT GIVEN TO ZHANE RASCON AT 1010.
[2025-02-26] MEDS: 0.9%NACL 1000ML 1,000 ML IV ONE (10:07)
--- NOTE | 2025-02-26 10:08 | NUR ---
ASSUMED PT CARE AT THIS TIME.MOVED PT TO ER BED 20.
[2025-02-26 10:22] LABS: SQUAMOUS EPITHELIAL CELL,UR MANY /HPF (0-2)
[2025-02-26] MEDS ORDERED: CEPH500B PO (10:50)
[2025-02-26] MEDS ORDERED: HYDR-4766 PO (10:50)
[2025-02-26 11:08] VITALS: BP 106/59; PULSE 72; RESP 17; TEMP 97.8; O2SAT 100
[2025-02-26] MEDS ORDERED: ACET-2079 PO (13:01)
== END 2025-02-26 11:24 | disposition home or self-care (01) ==
LOC: EDH 09:00
DX: N39.0 Urinary tract infection, site not specified (principal); Z79.1 Long term (current) use of non-steroidal anti-inflammatories (NSAID); Z79.899 Other long term (current) drug therapy; Z90.49 Acquired absence of other specified parts of digestive tract
CPT/HCPCS: 99284; 96374; 96361; 96375; 80048; 85025; 87086; 81001; 81025; 36415; J7030; J2405; J2470